=== PATIENT | male | born 1985 | race Caucasian/White ===

== ENCOUNTER 2016-11-06 20:58 | Emergency (ER) | payer OTHER, MEDICAID ==
[~2016-11-06] VITALS: Ht 172.7 cm; Wt 90.7 kg
[~2016-11-06 20:58] MED LIST: ALBUAER3 IN; BISA10EN RE; DIPH50TA9 PO; GAB400C PO; LEVO500I7 PO; LIS5T PO; ONDA4TAB8 SL; SIMV10TA84 PO; TRAM100C PO; TRAZ100T2 PO
[2016-11-06] MEDS ORDERED: LORazepam 0.5 MG TAB PO ONE (23:00)
[2016-11-06 23:24] LABS: Urine Bilirubin Negative (Negative); Urine Blood TRACE /uL (Negative); Urine Color Yellow (Yellow); Urine Glucose Normal (Normal); Urine Ketone Negative (Negative); Urine Nitrite Negative (Negative); Urine RBC 2 /hpf (0 - 3); Urine Urobilinogen Normal (Negative); Urine pH 6.5 (5.0-8.0)
[2016-11-06 23:27] LABS: Basophils # (auto) 0 uL; Basophils % (auto) 0.4 % (0.0-2.0); Eosinophils # (auto) 0.1 uL; Eosinophils % (auto) 0.8 % (0.0-7.0); Hematocrit 44.8 % (41.0-53.0); Hemoglobin 15.3 g/dL (13.5-17.5); Lymphocytes # (auto) 2.9 uL; Lymphocytes % (auto) 27.6 % (10.0-50.0); Mean Corpuscular Hemoglobin 30.9 pg (28.0-32.0); Mean Corpuscular Volume 90.6 fL (80.0-100.0); Mean Platelet Volume 7.9 fL (7.4-10.4); Monocytes # (auto) 0.7 uL; Monocytes % (auto) 6.2 % (0.0-12.0); Neutrophils # (auto) 6.9 uL; Platelet Count (auto) 281 10^3/uL (140-450); Red Cell Distribution Width 14.3 % (11.6-16.0); White Blood Cell 10.6 10^3/uL (4.4-10.8)
[2016-11-06 23:50] LABS: Albumin 3.8 g/dL (3.4-5.0); BUN/Creatinine Ratio 11.7; Potassium 3.8 mmol/L (3.5-5.1)
[2016-11-06 23:52] LABS: Acetaminophen < 2.0 ug/mL (10-30); Salicylate < 1.7 mg/dL (2.8-20.0)
[2016-11-06 23:53] LABS: Bilirubin, Total 0.4 mg/dL (0.2-1.0); Total Protein 7.5 g/dL (6.4-8.2)
[2016-11-07 01:16] VITALS: BP 133/90
== END 2016-11-07 01:41 | disposition home or self-care (01) ==
LOC: ER 21:07
DX: F41.9 Anxiety disorder, unspecified (principal); F32.9 Major depressive disorder, single episode, unspecified; J45.909 Unspecified asthma, uncomplicated; R41.82 Altered mental status, unspecified; G80.9 Cerebral palsy, unspecified; K21.9 Gastro-esophageal reflux disease without esophagitis; E78.5 Hyperlipidemia, unspecified; E07.9 Disorder of thyroid, unspecified
CPT/HCPCS: 36415; 80053; 80307; 80329; 81001; 84443; 85025

== ENCOUNTER 2018-06-12 18:44 | Emergency (ER) | payer OTHER, MEDICAID ==
[~2018-06-12] VITALS: Ht 152.4 cm; Wt 81.6 kg
[~2018-06-12 18:44] MED LIST changes: +ONDA-101 SL; -ONDA4TAB8 SL
[2018-06-12] MEDS ORDERED: ACTIVATED CHARCOAL 50 GM/240 ML SOL PO ONE (19:15)
[2018-06-12 19:50] LABS: Basophils # (auto) 0.1 uL; Basophils % (auto) 0.7 % (0.0-2.0); Eosinophils # (auto) 0.3 uL; Eosinophils % (auto) 2.7 % (0.0-7.0); Hematocrit 46.1 % (41.0-53.0); Hemoglobin 15.9 g/dL (13.5-17.5); Lymphocytes # (auto) 2.2 uL; Lymphocytes % (auto) 19.6 % (10.0-50.0); Mean Corpuscular Hemoglobin 29.8 pg (28.0-32.0); Mean Corpuscular Hgb Conc. 34.5 g/dL (32.0-36.0); Mean Corpuscular Volume 86.3 fL (80.0-100.0); Monocytes # (auto) 0.8 uL; Monocytes % (auto) 7.2 % (0.0-12.0); Neutrophils # (auto) 7.8 uL; Neutrophils % (auto) 69.8 % (37.0-80.0); Nucleated Red Blood Cells % 0.4 %; Platelet Count (auto) 212 10^3/uL (140-450); Red Blood Cells 5.35 10^6/uL (4.5-5.90); Red Cell Distribution Width 15.7 % (11.8-14.3); White Blood Cell 11.1 10^3/uL (4.4-10.8)
[2018-06-12 20:05] LABS: Alanine Aminotransferase 43 U/L (16-61); Albumin 4.3 g/dL (3.4-5.0); Anion Gap 12 (5-15); Aspartate Aminotransferase 28 U/L (15-37); BUN/Creatinine Ratio 18.5; Blood Alcohol < 3.0 mg/dL (0-5); Blood Urea Nitrogen 15 mg/dL (7-18); Carbon Dioxide 25 mmol/L (21-32); Chloride 102 mmol/L (98-107); GFR African American 141 mL/min; GFR Non-African American 117 mL/min; Glucose 115 mg/dL (74-106); Potassium 3.5 mmol/L (3.5-5.1); Salicylate < 1.7 mg/dL (2.8-20.0); Sodium 139 mmol/L (136-145)
[2018-06-12 20:06] LABS: Acetaminophen < 2.0 ug/mL (10-30)
[2018-06-12 20:09] LABS: Alkaline Phosphatase 84 U/L (45-117); Bilirubin, Total 0.8 mg/dL (0.2-1.0); Total Protein 7.5 g/dL (6.4-8.2)
[2018-06-12 21:06] LABS: Urine Bacteria NONE SEEN /hpf (None Seen); Urine Blood 1+ /uL (Negative); Urine Specific Gravity 1.009 (1.001-1.035); Urine WBC 1 /hpf (0 - 3)
[2018-06-12 21:12] LABS: Alcohol, Urine < 3.0 mg/dL (0-5); Amphetamine Screen, Urine NEGATIVE (NEGATIVE); Barbiturate Scree,Urine NEGATIVE (NEGATIVE); Benzodiazephine Screen, Urine NEGATIVE (NEGATIVE); Cannabinoid Screen, Urine NEGATIVE (NEGATIVE); Cocaine Screen, Urine NEGATIVE (NEGATIVE); Phencyclidine Screen, Urine NEGATIVE (NEGATIVE)
[2018-06-12 21:17] LABS: Opiate Scree,Urine NEGATIVE (NEGATIVE)
[2018-06-12] MEDS ORDERED: LORazepam 2MG/ML-1ML VIAL IM ONE (22:15)
[2018-06-12] MEDS ORDERED: diphenhdrAMINE HCL 50 MG/1 ML VL IM ONE (22:15)
[2018-06-12] MEDS ORDERED: HALOPERIDOL LACTATE 5 MG/ML INJ VIAL IM ONE (22:15)
[2018-06-12] MEDS ORDERED: LORazepam 2MG/ML-1ML VIAL ONE (22:16)
[2018-06-12] MEDS ORDERED: HALOPERIDOL LACTATE 5 MG/ML INJ VIAL ONE (22:16)
[2018-06-12] MEDS ORDERED: diphenhdrAMINE HCL 50 MG/1 ML VL ONE (22:16)
[2018-06-13 00:21] LABS: Basophils # (auto) 0.1 uL; Basophils % (auto) 1.4 % (0.0-2.0); Eosinophils # (auto) 0.3 uL; Hematocrit 44.1 % (41.0-53.0); Hemoglobin 14.9 g/dL (13.5-17.5); Lymphocytes # (auto) 2.6 uL; Lymphocytes % (auto) 23.9 % (10.0-50.0); Mean Corpuscular Hgb Conc. 33.7 g/dL (32.0-36.0); Mean Corpuscular Volume 86.2 fL (80.0-100.0); Monocytes # (auto) 0.8 uL; Monocytes % (auto) 7.6 % (0.0-12.0); Neutrophils # (auto) 6.9 uL; Neutrophils % (auto) 64.1 % (37.0-80.0); Platelet Count (auto) 200 10^3/uL (140-450); Red Blood Cells 5.12 10^6/uL (4.5-5.90); Red Cell Distribution Width 15.6 % (11.8-14.3); White Blood Cell 10.7 10^3/uL (4.4-10.8)
[2018-06-13 00:38] LABS: Albumin 4.1 g/dL (3.4-5.0); BUN/Creatinine Ratio 18.1; Calcium 8.8 mg/dL (8.5-10.1); Potassium 3.2 mmol/L (3.5-5.1)
[2018-06-13 00:41] LABS: Bilirubin, Total 0.6 mg/dL (0.2-1.0)
[2018-06-13 08:37] VITALS: BP 141/91
== END 2018-06-13 10:03 | disposition home or self-care (01) ==
LOC: ER 18:44 → EDBD 18:44 → ER 06-13 10:03
DX: T39.312A Poisoning by propionic acid derivatives, intentional self-harm, initial encounter (principal); R45.851 Suicidal ideations; F31.9 Bipolar disorder, unspecified; H54.7 Unspecified visual loss; F41.9 Anxiety disorder, unspecified; J45.909 Unspecified asthma, uncomplicated; E07.89 Other specified disorders of thyroid; Z88.0 Allergy status to penicillin; Y92.89 Other specified places as the place of occurrence of the external cause
CPT/HCPCS: 36415; 80053; 80307; 80320; 80329; 81001; 84484; 85025; 93005; 94761; 96372; 99284; J1200; J1630; J2060

== ENCOUNTER → 2019-11-08 | Emergency (ER) | payer OTHER, MEDICAID ==
[~2019-11-08] VITALS: Ht 172.7 cm; Wt 117.9 kg
[~2019-11-08] MED LIST changes: -TRAZ100T2 PO; +TRAZ100T3 PO
[2019-11-08 20:05] VITALS: BP 125/77
== END | disposition home or self-care (01) ==
LOC: ER 19:42
DX: F41.9 Anxiety disorder, unspecified (principal); F31.9 Bipolar disorder, unspecified; J45.909 Unspecified asthma, uncomplicated; K21.9 Gastro-esophageal reflux disease without esophagitis; E78.5 Hyperlipidemia, unspecified; E07.9 Disorder of thyroid, unspecified; Z88.0 Allergy status to penicillin

== ENCOUNTER 2024-04-13 14:59 | Inpatient (IN) | payer OTHER, MEDICAID ==
[~2024-04-13] VITALS: Ht 175.3 cm; Wt 107.0 kg
[~2024-04-13 14:59] MED LIST changes: +SIMV10TA20 PO; -SIMV10TA84 PO; +TRAZ-228 PO; -TRAZ100T3 PO
--- NOTE | 2024-04-13 15:08 | ED.PDOC ---
Psychiatric HPI Comments A 38 year old male presents to the ED with a chief complaint of suicidal ideation onset today. Patient states he ran out of his medication, did not state which medications but has a list with him. Patient is also experiencing auditory hallucinations as well as suicidal ideations. Patient has been experiencing nausea and vomiting for the past 3 days and has not been able to keep down his medication. Patient has a past medical history of HLD, HTN, anxiety, asthma, depression, Schizophrenia and GERD,hypothyroidism, cerebral palsy, retinopathy, urinary and fecal incontinence, legally blind, OCD, idiopathic scoliosis, gastroparesis. No other symptoms or modifying factors present at this time. Time Seen by MD: 15:02 Primary Care Provider: DANIIK Reviewed Notes: Medications, Allergies Information Source: Patient Mode of Arrival: Wheelchair Timing: Hours Duration: Since onset Presents with: Suicidal Ideation Past Medical History PAST MEDICAL HISTORY: Anxiety, Asthma, Depression, GERD, High Lipids, Schizophrenia, Thyroid Surgical History: Hernia Repair Family History Family History: No family hx of DM, No family hx of HTN Social History Smoker: Non-Smoker Alcohol: Denies ETOH Use Drugs: Denies Drug Use Lives In: Home Constitutional: denies: chills, diaphoresis, fatigue, fever, malaise, sweats, weakness, others EENTM: denies: blurred vision, double vision, ear bleeding, ear discharge, ear drainage, ear pain, ear ringing, eye pain, eye redness, hearing loss, mouth pain, mouth swelling, nasal discharge, nose bleeding, nose congestion, nose pain , photophobia, tearing, throat pain, throat swelling, voice changes, others Respiratory: denies: cough, hemoptysis, orthopnea, SOB at rest, shortness of breath, SOB with excertion, stridor, wheezing, others Cardiovascular: denies: chest pain, dizzy spells, diaphoresis, Dyspnea on exertion, edema, irregular heart beat, left arm pain, lightheadedness, palpitations, PND, syncope, others Gastrointestinal: denies: abdomen distended, abdominal pain, blood streaked bowels, constipated, diarrhea, dysphagia, difficulty swallowing, hematemesis, melena, nausea, poor appetite, poor fluid intake, rectal bleeding, rectal pain, vomiting, others Genitourinary: denies: burning, dysuria, flank pain, frequency, hematuria, incontinence, penile discharge, penile sore, pain, testicle pain, testicle swelling, urgency, others Neurological: denies: dizziness, fainting, headache, left sided numbness, left sided weakness, numbness, paresthesia, pre-existing deficit, right sided numbness, right sided weakness, seizure, speech problems, tingling, tremors, weakness, others Musculoskeletal: denies: back pain, gout, joint pain, joint swelling, muscle pain, muscle stiffness, neck pain, others Integumetry: denies: bruises, change in color, change in hair/nails, dryness, laceration, lesions, lumps, rash, wounds, others Allergic/Immunocompromised: denies: Difficulty Healing, Frequent Infections, Hives, Itching, others Hematologic/Lymphatic: denies: anemia, blood clots, easy bleeding, easy bruising, swollen glands, others Endocrine: denies: excessive hunger, excessive sweating, excessive thirst, excessive urination, flushing, intolerance to cold, intolerance to heat, unexplained weight gain, unexplained weight loss, others Psychiatric: reports: suicidal, others (hallucinations ); denies: anxiety, bipolar disorder, depression, hopeless, panic disorder, schizophrenia, sleepless All Other Systems: Reviewed and Negative Physical Exam General Appearance: Moderate Distress, Normal HEENT: Normal ENT Inspection, Pharynx Normal, TMs Normal Neck: Full Range of Motion, Non-Tender, Normal, Normal Inspection Respiratory: Chest Non-Tender, Lungs Clear, No Accessory Muscle Use, No Respiratory Distress, Normal Breath Sounds Cardiovascular: No Edema, No JVD, No Murmur, No Gallop, Normal Peripheral Pulses, Regular Rate/Rhythm Breast Exam: Deferred Gastrointestinal: No Organomegaly, Non Tender, No Pulsatile Mass, Normal Bowel Sounds, Soft Genitalia: Deferred Pelvic: Deferred Rectal: Deferred Extremities: No calf tenderness, Normal capillary refill, Non-tender, No pedal edema Musculoskeletal : Apperance: Normal Neurologic: Alert Cerebellar Function: NOT DONE Reflexes: NOT DONE Skin: Dry, Normal Color, Warm Peripheral Pulses: 3+ Radial (R), 3+ Radial (L) Lymphatic: No Adenopathy Was a procedure done? Was a procedure done?: No Psych Differential Dx Psych. Differential Dx: Schizoprenia, Suicidal X-Ray, Labs, Meds, VS Patient alert. History of cerebral palsy. States that he has been having suicidal ideation. Having nausea vomiting. Vitals stable. Answering all questions. Frustrated that he can not take his medication. Establish intravenous access. Was given Zofran. He will be admitted for medical condition after which time he will need psychiatric evaluation. Time of 1ST Reevaluation: 15:33 Reevaluation 1ST: Unchanged Patient Education/Counseling: Diagnosis, Treatment, Prognosis Family Education/Counseling: No Family Present Departure 1 Departure Time of Disposition: 15:34 Impression: Primary Impression: Gastroenteritis Additional Impression: Suicidal ideation Disposition: ADMITTED INPATIENT Admit to: Med Surg Condition: Guarded Critical Care Note Critical Care Time?: Yes (45 min-critical care time only) Stability Stability form required: No Heart Score Heart Score: Heart Score Response (Comments) Value History N/A 0 EKG N/A 0 Age N/A 0 Risk Factors N/A 0 Troponin N/A 0 Total 0 I personally scribed for ORALIA ASHRAF MD ([email or web address]) on 04/13/24 at 15:08. Electronically submitted by Calista Chance ([email or web address]). I personally scribed for ORALIA ASHRAF MD ([email or web address]) on 04/13/24 at 15:15. Electronically submitted by Calista Chance ([email or web address]). I personally scribed for ORALIA ASHRAF MD ([email or web address]) on 04/13/24 at 15:19. Electronically submitted by Calista Chance ([email or web address]). I personally scribed for ORALIA ASHRAF MD ([email or web address]) on 04/13/24 at 15:28. Electronically submitted by Calista Chance ([email or web address]). ORALIA ASHRAF MD Apr 13, 2024 15:08
[2024-04-13 16:00] LABS: Basophils # (auto) 0.1 10 ^3/uL (0-0.2); Basophils % (auto) 0.9 % (0.0-2.0); Eosinophils # (auto) 0.3 10 ^3/uL (0-0.8); Eosinophils % (auto) 3.1 % (0.0-7.0); Hematocrit 44.2 % (41.0-53.0); Hemoglobin 14.7 g/dL (13.5-17.5); Lymphocytes # (auto) 2.3 10 ^3/uL (0.4-5.4); Lymphocytes % (auto) 22.4 % (10.0-50.0); Mean Corpuscular Hemoglobin 27.7 pg (28.0-32.0); Mean Corpuscular Hgb Conc. 33.2 g/dL (32.0-36.0); Mean Corpuscular Volume 83.3 fL (80.0-100.0); Monocytes # (auto) 0.8 10 ^3/uL (0-1.3); Monocytes % (auto) 7.9 % (0.0-12.0); Neutrophils # (auto) 6.8 10 ^3/uL (1.6-8.6); Neutrophils % (auto) 65.7 % (37.0-80.0); Nucleated Red Blood Cells % 0.1 %; Platelet Count (auto) 287 10^3/uL (140-450); Red Cell Distribution Width 16.1 % (11.8-14.3); White Blood Cell 10.3 10^3/uL (4.4-10.8)
[2024-04-13 16:08] LABS: Chloride 105 mmol/L (98-107); Sodium 138 mmol/L (136-145)
[2024-04-13 16:09] LABS: Anion Gap 6 (5-15); Calcium 10.2 mg/dL (8.7-10.4); Carbon Dioxide 27 mmol/L (20-31)
[2024-04-13 16:14] LABS: BUN/Creatinine Ratio 16.5 (10.0-20.0); Blood Urea Nitrogen 17 mg/dL (9-23); Glucose 121 mg/dL (74-106)
[2024-04-13 16:40] VITALS: PULSE 96; RESP 16; O2SAT 97
[2024-04-13] MEDS: ONDANSETRON HCL 4 MG/2 ML VIAL IV ONE (17:52)
[2024-04-13 19:45] VITALS: PULSE 86; RESP 14; O2SAT 98
[2024-04-13] MEDS ORDERED: ACETAMINOPHEN 325 MG TAB PO PRN (22:30)
[2024-04-13] MEDS ORDERED: NITROGLYCERIN 0.4 MG SL TAB SL PRN (22:30)
[2024-04-13] MEDS ORDERED: MORPHINE SULFATE INJ 2 MG/ml SYRG IV PRN (22:30)
[2024-04-13] MEDS: SODIUM CHLORIDE 0.9% 1,000 ML IV SCH (22:30)
[2024-04-13] MEDS: HYDROcodone-ACET 5/325MG TAB PO PRN (22:45)
--- NOTE | 2024-04-13 22:52 | DVHHPRES ---
History of Present Illness Resident Creating Document: CARLOS DELCID RESIDENT History of Present Illness This is a 38 year old wheelchair bound male with past medical history of HLD, HTN, anxiety, asthma, depression, Schizophrenia and GERD,hypothyroidism, cerebral palsy, retinopathy, urinary and fecal incontinence, legally blind, OCD, idiopathic scoliosis, gastroparesispresents presented to the ED with a chief complaint of suicidal ideation onset today. Patient states he ran out of his medication, did not state which medications but has a list with him. Patient is also experiencing auditory hallucinations as well as suicidal ideations. Patient has been experiencing nausea and vomiting for the past 3 days and has not been able to keep down his medication. He reports having vomited 4 to 5 times and experiencing watery diarrhea, 3 episodes in 24 hour. He denies any abdominal pain, blood in the stool, chest pain, cough, or shortness of breath. Past Medical History HLD, HTN, anxiety, asthma, depression, Schizophrenia and GERD,hypothyroidism, cerebral palsy, retinopathy, urinary and fecal incontinence, legally blind, OCD, idiopathic scoliosis, gastroparesis Past Surgical History: None Past Surgical History Family History: None Smoke: No ALCOHOL: none Review of Systems Constitutional: No: Fever, Chills, Sweats, Weakness, Malaise, Other Eyes: No: Pain, Vision change, Conjunctivae inflammation, Eyelid inflammation, Other, Redness ENT: No: Ear pain, Ear discharge, Nose pain, Nose discharge, Nose congestion, Mouth pain, Mouth swelling, Throat pain, Throat swelling, Other Respiratory: No: Cough, Dry, Shortness of breath, SOB with excertion, Wheezing, Hemoptysis, Pleuritic Pain, Sputum, Wheezing, Other Cardiovascular: No: Chest Pain, Palpitations, Orthopnea, Paroxysmal Noc. Dyspnea, Edema, Lt Headedness, Other Gastrointestinal: Nausea, Vomiting, Abdominal Pain, Diarrhea Genitourinary: No Dysuria, No Frequency, No Incontinence, No Hematuria, No Retention, No Other Musculoskeletal: No: other, neck pain, shoulder pain, arm pain, back pain, hand pain, leg pain, foot pain Skin: No: Rash, Lesions, Jaundice, Bruising, Other Neurological: No: Weakness, Numbness, Incoordination, Change in speech, Confusion, Seizures, Other Allergies: Coded Allergies: Penicillins (Verified Allergy, Unknown, 04/09/14) Medications Current Medications Medications Dose Ordered Sig/Demian Route Start Time Stop Time Status Last Admin Dose Admin Sodium Chloride 1,000 ml @ 75 mls/hr [id number] IV 04/13/24 22:30 Acetaminophen 325 mg Q4HP PRN PO 04/13/24 22:30 Acetaminophen/ Hydrocodone Bitart 1 tab Q4HP PRN PO 04/13/24 22:30 04/13/24 22:45 1 TAB Ondansetron HCl 4 mg Q4HP PRN IV 04/13/24 22:30 Enoxaparin Sodium 40 mg DAILY SC 04/14/24 10:00 UNV Nitroglycerin 0.4 mg Q5MINP PRN SL 04/13/24 22:30 Morphine Sulfate 2 mg Q30M PRN IV 04/13/24 22:30 Exam Vital Signs Vital Signs Date Time Temp Pulse Resp B/P (MAP) Pulse Ox O2 Delivery O2 Flow Rate FiO2 04/13/24 19:47 98.8 96 16 146/82 (103) 98 98.8 04/13/24 16:40 Room Air* 0 21 General Appearance: Alert, Oriented X3, Cooperative, No acute distress HEENT: Atraumatic, PERRLA, EOMI, Mucous membr. moist/pink Respiratory: Clear to auscultation, Normal air movement Cardiovascular: Regular rate, Normal S1, Normal S2, No murmurs Abdominal: Normal bowel sounds, Soft, No tenderness, No hepatospenomegaly, No masses Extremities: No clubbing, No cyanosis, No edema, Normal pulses, No tenderness/swelling Skin: No rashes, No breakdown, No significant lesion Neuro: Other (Wheelchair-bound, the patient was not talking and communicating only with text messages) Psych/Mental Status: Other (Depressed, suicidal thoughts) Labs/Xrays Labs Test 04/13/24 22:37 04/13/24 15:49 Range/Units White Blood Count 10.3 4.4-10.8 10^3/uL Red Blood Count 5.30 4.5-5.90 10^6/uL Hemoglobin 14.7 13.5-17.5 g/dL Hematocrit 44.2 41.0-53.0 % Mean Corpuscular Volume 83.3 80.0-100.0 fL Mean Corpuscular Hemoglobin 27.7 L 28.0-32.0 pg Mean Corpuscular Hemoglobin Concent 33.2 32.0-36.0 g/dL Red Cell Distribution Width 16.1 H 11.8-14.3 % Platelet Count 287 140-450 10^3/uL Mean Platelet Volume 7.6 6.9-10.8 fL Neutrophils (%) (Auto) 65.7 37.0-80.0 % Lymphocytes (%) (Auto) 22.4 10.0-50.0 % Monocytes (%) (Auto) 7.9 0.0-12.0 % Eosinophils (%) (Auto) 3.1 0.0-7.0 % Basophils (%) (Auto) 0.9 0.0-2.0 % Neutrophils # (Auto) 6.8 1.6-8.6 10 ^3/uL Lymphocytes # (Auto) 2.3 0.4-5.4 10 ^3/uL Monocytes # (Auto) 0.8 0-1.3 10 ^3/uL Eosinophils # (Auto) 0.3 0-0.8 10 ^3/uL Basophils # (Auto) 0.1 0-0.2 10 ^3/uL Nucleated Red Blood Cells 0.1 % Sodium Level 138 136-145 mmol/L Potassium Level 4.0 3.5-5.1 mmol/L Chloride Level 105 98-107 mmol/L Carbon Dioxide Level 27 20-31 mmol/L Anion Gap 6 5-15 Blood Urea Nitrogen 17 9-23 mg/dL Creatinine 1.03 0.700-1.30 mg/dL Glomerular Filtration Rate Calc 95 >90 mL/min BUN/Creatinine Ratio 16.5 10.0-20.0 Serum Glucose 121 H 74-106 mg/dL Calcium Level 10.2 8.7-10.4 mg/dL Assessment/Plan Assessment/Plan Assessment and plan: # Acute gastroenteritis - IV normal saline at 75 mL/hour - IV Zofran 4 mg q.4 p.r.n. # Suicidal ideation - Telepsych consult # Chronic hypothyroidism - Levothyroxine 50 mcg q.6 a.m. # GERD - Protonix 40 mg daily # Chronic neuropathic pain - Gabapentin 300 mg p.o. t.i.d. # DVT prophylaxis - Lovenox 40 mg sc daily Plan of treatment discussed with Dr. Joseph Plan discussed with: Patient, Other My Orders Orders - CARLOS DELCID RESIDENT Procedure Category Date Status Time Admit ADMIT 04/13/24 Transmitted 22:17 Allergies MAHENDRA 04/13/24 In Process 22:17 Code Status CODE 04/13/24 Transmitted 22:17 Sodium Chloride 0.9% PHA 04/13/24 In Process 22:30 Acetaminophen Tablet PHA 04/13/24 In Process (Tylenol Tablet) 22:30 Hydrocodone-Acet PHA 04/13/24 In Process 5/325mg Tab ([place] 22:30 Ondansetron Hcl PHA 04/13/24 In Process (Zofran) 22:30 Enoxaparin Sodium PHA 04/14/24 Pending (Lovenox) 10:00 Complete Blood Count LAB 04/14/24 Verified 04:00 Comprehensive LAB 04/14/24 Verified Metabolic Panel 04:00 Clear Liq Diet DIET 04/14/24 Transmitted Breakfast Nitroglycerin PHA 04/13/24 In Process Sublingual (Ntrostat 22:30 Morphine Sulfate PHA 04/13/24 In Process Injection 22:30 Oxygen By Nasal RT 04/13/24 Transmitted Cannula 22:17 Stat Ekg For Chest MAHENDRA 04/13/24 In Process Pain 22:17 Notify Md Of Changes MAHENDRA 04/13/24 In Process From Base 22:17 Director Of Research For MAHENDRA 04/13/24 In Process 24 Hours 22:17 Emergency Dysrhythmia MAHENDRA 04/13/24 In Process Protocol 22:17 Rhythm Strips Once MAHENDRA 04/13/24 In Process Every Shift 22:17 Date of Service: Apr 13, 2024 Billing Provider: LESLI JOSEPH MD Common Visit Codes: [id number] INP/OBS CARE (HIGH) CARLOS DELCID RESIDENT Apr 13, 2024 22:52 LESLI JOSEPH MD Apr 16, 2024 08:23
[2024-04-13 23:13] LABS: Amphetamine Screen, Urine Neg (NEGATIVE); Barbiturate Scree,Urine Neg (NEGATIVE); Benzodiazephine Screen, Urine Neg (NEGATIVE); Cocaine Screen, Urine Neg (NEGATIVE); Opiate Scree,Urine Neg (NEGATIVE)
[2024-04-13 23:14] LABS: Cannabinoid Screen, Urine Neg (NEGATIVE); Phencyclidine Screen, Urine Neg (NEGATIVE)
[2024-04-14] VITALS (12 sets, daily range): BP systolic 112–149; BP diastolic 59–93; PULSE 71–88; RESP 16–20; TEMP 97.8–98.4; O2SAT 90–98
[2024-04-14] MEDS: ONDANSETRON HCL 4 MG/2 ML VIAL IV PRN (03:06)
[2024-04-14] MEDS: GABAPENTIN 300 MG CAP PO SCH (05:56)
[2024-04-14] MEDS: LEVOTHYROXINE SODIUM 50 MCG TAB PO SCH (05:56)
[2024-04-14] MEDS: PANTOPRAZOLE 40 MG TAB PO SCH (05:56)
[2024-04-14] MEDS ORDERED: CEPH500C PO (07:01)
[2024-04-14] MEDS ORDERED: PANT40TA2 PO (07:01)
[2024-04-14] MEDS ORDERED: FENO160T PO (07:22)
[2024-04-14] MEDS ORDERED: MIRT1TAB38 PO (07:22)
[2024-04-14] MEDS ORDERED: OXCA600T3 PO (07:22)
[2024-04-14] MEDS ORDERED: FLUP5TAB14 PO (07:22)
[2024-04-14] MEDS ORDERED: LEV75T PO (07:22)
[2024-04-14] MEDS ORDERED: ATOR-507 PO (07:22)
[2024-04-14] MEDS ORDERED: EMPA1TAB PO (07:22)
[2024-04-14] MEDS ORDERED: NIFE1TAB30 PO (07:22)
[2024-04-14] MEDS ORDERED: VENL150C3 PO (07:22)
[2024-04-14] MEDS ORDERED: MELO15TA29 PO (07:22)
[2024-04-14] MEDS ORDERED: OLAN1TAB PO (07:22)
[2024-04-14] MEDS ORDERED: BACL20TA PO (07:22)
[2024-04-14] MEDS ORDERED: OLAN20TA PO (07:22)
[2024-04-14] MEDS ORDERED: METO-281 PO (07:22)
[2024-04-14] MEDS ORDERED: LOSA100T14 PO (07:22)
[2024-04-14] MEDS ORDERED: CHOL20007 PO (07:22)
[2024-04-14] MEDS ORDERED: SODI1ENE4 PR (07:22)
[2024-04-14] MEDS: ENOXAPARIN SOD 40 MG/0.4 ML SYRINGE SC SCH (10:00)
[2024-04-14 10:12] LABS: Alanine Aminotransferase 25 U/L (7-40); Alkaline Phosphatase 65 U/L (46-116); Anion Gap 8 (5-15); Calcium 10.1 mg/dL (8.7-10.4); Carbon Dioxide 28 mmol/L (20-31); Chloride 102 mmol/L (98-107); Glucose 120 mg/dL (74-106); Potassium 4.2 mmol/L (3.5-5.1); Sodium 138 mmol/L (136-145)
[2024-04-14 10:13] LABS: BUN/Creatinine Ratio 13.2 (10.0-20.0); Blood Urea Nitrogen 14 mg/dL (9-23)
[2024-04-14 10:14] LABS: Albumin 4.8 g/dL (3.2-4.8)
[2024-04-14 10:15] LABS: Aspartate Aminotransferase 11 U/L (13-40); Bilirubin, Total 0.4 mg/dL (0.2-1.0); Total Protein 7.4 g/dL (5.7-8.2)
[2024-04-14 10:17] LABS: Basophils # (auto) 0.1 10 ^3/uL (0-0.2); Basophils % (auto) 0.7 % (0.0-2.0); Eosinophils # (auto) 0.2 10 ^3/uL (0-0.8); Eosinophils % (auto) 2.1 % (0.0-7.0); Hematocrit 43.6 % (41.0-53.0); Hemoglobin 14.2 g/dL (13.5-17.5); Lymphocytes # (auto) 1.9 10 ^3/uL (0.4-5.4); Lymphocytes % (auto) 18.1 % (10.0-50.0); Mean Corpuscular Hemoglobin 27.3 pg (28.0-32.0); Mean Corpuscular Hgb Conc. 32.6 g/dL (32.0-36.0); Mean Corpuscular Volume 83.7 fL (80.0-100.0); Monocytes # (auto) 0.7 10 ^3/uL (0-1.3); Monocytes % (auto) 6.9 % (0.0-12.0); Neutrophils # (auto) 7.8 10 ^3/uL (1.6-8.6); Neutrophils % (auto) 72.2 % (37.0-80.0); Platelet Count (auto) 267 10^3/uL (140-450); Red Cell Distribution Width 16.1 % (11.8-14.3); White Blood Cell 10.8 10^3/uL (4.4-10.8)
[2024-04-14] MEDS: LISINOPRIL 5 MG TAB PO SCH (10:42)
[2024-04-14] MEDS: ACETAMINOPHEN 500 MG TAB PO SCH (10:49)
[2024-04-14] MEDS ORDERED: IPRATROPIUM BROM 0.5 MG/2.5ML INH SOL NEB SCH (11:00)
[2024-04-14 11:20] LABS: Urine Bacteria None Seen /hpf (None Seen); Urine WBC None Seen /hpf (0 - 3)
[2024-04-14 11:39] LABS: Urine Blood Negative /uL (Negative); Urine Clarity Clear (Clear); Urine Color Light-Yellow (Yellow); Urine Protein, UAD Negative (Negative); Urine Specific Gravity 1.019 (1.001-1.035); Urine Urobilinogen Normal (Negative)
[2024-04-14] MEDS ORDERED: LEVALBUTEROL HCL 1.25 MG/3 ML NEB NEB SCH (12:00)
[2024-04-14] MEDS ORDERED: SUMA50TA16 PO (14:08)
[2024-04-14] MEDS ORDERED: BUTA-280 OR (14:08)
[2024-04-14 14:18] LABS: COVID19 ANTIGEN SOFIA FIA NEGATIVE (NEGATIVE)
--- NOTE | 2024-04-14 15:08 | DVHINCON2 ---
Date of service: Apr 14, [address] Linden Ybarra Reason for Consultation Medication management and disposition. History of Present Illness Chief complaint: "I have migraine, urinary tract infection and voices". History of present illness: This is a 38-year-old male who was seen for evaluation via telepsychiatry. Patient reported that he has been feeling more depressed for last four days. Patient reported having trouble sleeping, loss of interest, energy low, has trouble content, appetite decreased and he feels hope less and worthless. He denied any suicidal or homicidal ideation. He reported having command auditory hallucination telling him to "they tell me to hit myself and bite myself". He denied any visual hallucination. He denied any paranoia. Past psychiatric history: Patient reported around 39 inpatient psychiatric hospitalization. He reported that he has been diagnosed schizoaffective disorder and anxiety. He reported he had suicidal ideation but no attempts in the past. Past Medical History As per history and physical. Past Surgical History As per history and physical. Family History: Cancer G8 MOTHER Family history: Arthritis G8 MOTHER Family history: Diabetes mellitus G8 MOTHER G8 FATHER Family history: Hypertension G8 MOTHER G8 FATHER No Family History of: Alcoholism Cancer of colon Chronic obstructive lung disease (situation) Family history: Alzheimer's disease Family history: Asthma Family history: Autoimmune disease (situation) Family history: Blood disorder Family history: Cardiovascular disease Family history: Congenital anomaly Family history: Coronary thrombosis Family history: Depression (situation) Family history: Diabetes in Family history: Glaucoma Family history: Hypercholesterolemia (situation) Family history: Osteoporosis Family history: Suicide (situation) Family history: Thyroid disorder Malignant melanoma Malignant neoplasm of breast Malignant neoplasm of lung Malignant neoplasm of ovary Prostate cancer Renal stone Seizure disorder (situation) Stroke Family History He reported that both of his parents have mental health issues. Social History Patient is and has no children. Patient reported that he is on SSDI. Substance use: Denied Allergies: Coded Allergies: Penicillins (Verified Allergy, Unknown, 04/09/14) Home Meds Reported Medications Btumhrqpfg-Xgfxjykslwtln-Ubclj (FIORICET) Cap, 1 OR, CAP 04/14/24 Sumatriptan Succinate (Sumatriptan Succinate) 50 Mg Tab, 50 MG PO, MG 04/14/24 Sodium Phosphates (Enema) 1 Ronna Ronna, 1 RONNA [place], EA 04/14/24 Baclofen (Baclofen) 20 Mg Tab, 1 TAB PO TID, #90 TAB 2 Refills 04/14/24 Metoclopramide Hcl (Reglan) 10 Mg Tab, 10 MG PO, TAB 04/14/24 Meloxicam (Meloxicam) 15 Mg Tab, 1 TAB PO DAILY, #30 TAB 2 Refills 04/14/24 Fluphenazine Hcl (Fluphenazine Hcl) 5 Mg Tab, 1 TAB PO QPM, #30 TAB 1 Refill 04/14/24 Oxcarbazepine (Trileptal) 600 Mg Tab, 1 TAB PO BID, #60 TAB 1 Refill 04/14/24 Empagliflozin (Jardiance) 10 Mg Tab, 10 MG PO, TAB 04/14/24 Mirtazapine (Mirtazapine Oral Disintegrating Tablet) 15 Mg Tab, 1 TAB PO QPM, #30 TAB 3 Refills 04/14/24 Venlafaxine Hydrochloride (Effexor Xr) 150 Mg Cap, 1 CAP PO DAILY, #30 CAP 1 Refill 04/14/24 Atorvastatin Calcium (Lipitor) 40 Mg Tab, 1 TAB PO QPM, #90 TAB 1 Refill 04/14/24 Olanzapine-Samidorphan l-Malat (Lybalvi 15-10 mg) 1 Tab Tab, 1 TAB PO, TAB 04/14/24 Olanzapine (Zyprexa) 20 Mg Tab, 1 TAB PO QPM, #30 TAB 04/14/24 Fenofibrate (Fenofibrate) 160 Mg Tab, 1 TAB PO DAILY, #30 TAB 5 Refills 04/14/24 Levothyroxine Sodium (Synthroid) 75 Mcg Tab, 1 TAB PO DAILY, #30 TAB 5 Refills 04/14/24 Nifedipine (Nifedipine Er) 60 Mg Tab, 1 TAB PO DAILY, #30 TAB 5 Refills 04/14/24 Pantoprazole Sodium Sesquihydr (Protonix) 40 Mg Tab, 40 MG PO DAILY, #30 TAB 04/14/24 Cephalexin Monohydrate (Cephalexin) 500 Mg Cap, 1 CAP PO QID, #40 CAP 04/14/24 Discontinued Reported Medications Levothyroxine Sodium (LEVOTHYROXINE SODIUM) 500 Mcg Inj, 50 MCG PO DAILY, INJ 04/08/14 Current Medications Current Medications Medications (Trade) Dose Ordered Sig/Demian Route PRN Reason Start Time Stop Time Status Last Admin Sodium Chloride 1,000 ml @ 75 mls/hr [id number] IV 04/13/24 22:30 04/14/24 03:11 Acetaminophen (Tylenol Tablet) 325 mg Q4HP PRN PO MILD PAIN (1-3 PAIN SCALE) 04/13/24 22:30 Acetaminophen/ Hydrocodone Bitart ([place] 5/325MG Tab) 1 tab Q4HP PRN PO MODERATE PAIN (4-6 PAIN SCALE) 04/13/24 22:30 04/14/24 02:59 Ondansetron HCl (Zofran) 4 mg Q4HP PRN IV NAUSEA / VOMITING 04/13/24 22:30 04/14/24 10:58 Enoxaparin Sodium (Lovenox) 40 mg DAILY SC 04/14/24 10:00 04/14/24 10:50 Nitroglycerin (Ntrostat Sublingual) 0.4 mg Q5MINP PRN SL FOR CHEST PAIN 04/13/24 22:30 Morphine Sulfate 2 mg Q30M PRN IV FOR CHEST PAIN 04/13/24 22:30 Levothyroxine Sodium (Synthroid Tablet) 50 mcg QAM@0600 PO 04/14/24 06:00 04/14/24 05:56 Gabapentin (Neurontin Capsule) 300 mg TID PO 04/14/24 06:00 04/14/24 05:56 Pantoprazole Sodium (Protonix Tablet) 40 mg DAILY@0600 PO 04/14/24 06:00 04/14/24 05:56 Lisinopril (Zestril Tablet) 5 mg DAILY PO 04/14/24 10:00 04/14/24 10:42 Acetaminophen (Tylenol Tablet) 500 mg Q6HR PO 04/14/24 12:00 04/14/24 10:49 Levalbuterol HCl (Xopenex Medneb) 0.625 mg Q6HR NEB 04/14/24 12:00 04/14/24 10:37 DC Ipratropium [place] (Atrovent Medneb) 0.5 mg Q4HWA NEB 04/14/24 11:00 04/14/24 10:37 DC Ipratropium [place] (Atrovent Medneb) 0.5 mg Q6HPRN PRN NEB SHORTNESS OF BREATH 04/14/24 10:45 Levalbuterol HCl (Xopenex Medneb) 0.625 mg Q6HPRN PRN NEB SHORTNESS OF BREATH 04/14/24 10:45 Review of Systems Patient has been complaining of nausea and vomiting. Rest of his review of systems is negative except HPI. Vital Signs Vital Signs Date Time Temp Pulse Resp B/P (MAP) Pulse Ox O2 Delivery O2 Flow Rate FiO2 04/14/24 14:02 98.3 76 18 136/88 (104) 93 98.3 04/14/24 10:38 0.0 21 04/14/24 10:38 Room Air* Physical Exam Mental status examination: This is a 38 year male who appears slightly older than his stated age. His grooming is marginal. His eye contact is good. His speech is regular rate and rhythm. He describes mood as "up and down" and his affect is restricted. He denied any suicidal or homicidal ideation. He reported having command auditory hallucination. He denied any visual hallucination. His thought process is linear. He is oriented to place, person, year and month. His attention and concentration slightly impaired. His memory and language is intact. His judgment and insight is limited. His impulse control is limited. His fund of knowledge is intact. Labs/Diagnostic Data Labs Test 04/14/24 13:40 04/14/24 11:10 04/14/24 10:37 04/14/24 09:14 Range/Units SARS-CoV-2 Antigen (Rapid) Negative NEGATIVE Urine Color Light-yellow Yellow Urine Clarity Clear Clear Urine pH 7.0 5.0-9.0 Urine Specific [place] 1.019 1.001-1.035 Urine Protein Negative Negative Urine Ketones Negative Negative Urine Blood Negative Negative /uL Urine Nitrite Negative Negative Urine Bilirubin Negative Negative Urine Urobilinogen Normal Negative mg/dL Urine Leukocyte Esterase Negative Negative /uL Urine RBC 1 0 - 3 /hpf Urine WBC None seen 0 - 3 /hpf Urine Squamous Epithelial Cells None seen <5 /hpf Urine Bacteria None seen None Seen /hpf Urine Glucose 4+ H Normal mg/dL White Blood Count 10.8 4.4-10.8 10^3/uL Red Blood Count 5.20 4.5-5.90 10^6/uL Hemoglobin 14.2 13.5-17.5 g/dL Hematocrit 43.6 41.0-53.0 % Mean Corpuscular Volume 83.7 80.0-100.0 fL Mean Corpuscular Hemoglobin 27.3 L 28.0-32.0 pg Mean Corpuscular Hemoglobin Concent 32.6 32.0-36.0 g/dL Red Cell Distribution Width 16.1 H 11.8-14.3 % Platelet Count 267 140-450 10^3/uL Mean Platelet Volume 7.7 6.9-10.8 fL Neutrophils (%) (Auto) 72.2 37.0-80.0 % Lymphocytes (%) (Auto) 18.1 10.0-50.0 % Monocytes (%) (Auto) 6.9 0.0-12.0 % Eosinophils (%) (Auto) 2.1 0.0-7.0 % Basophils (%) (Auto) 0.7 0.0-2.0 % Neutrophils # (Auto) 7.8 1.6-8.6 10 ^3/uL Lymphocytes # (Auto) 1.9 0.4-5.4 10 ^3/uL Monocytes # (Auto) 0.7 0-1.3 10 ^3/uL Eosinophils # (Auto) 0.2 0-0.8 10 ^3/uL Basophils # (Auto) 0.1 0-0.2 10 ^3/uL Nucleated Red Blood Cells 0.0 % Sodium Level 138 136-145 mmol/L Potassium Level 4.2 3.5-5.1 mmol/L Chloride Level 102 98-107 mmol/L Carbon Dioxide Level 28 20-31 mmol/L Anion Gap 8 5-15 Blood Urea Nitrogen 14 9-23 mg/dL Creatinine 1.06 0.700-1.30 mg/dL Glomerular Filtration Rate Calc 92 >90 mL/min BUN/Creatinine Ratio 13.2 10.0-20.0 Serum Glucose 120 H 74-106 mg/dL Hemoglobin A1c 7.0 H <5.7 % A1C Calcium Level 10.1 8.7-10.4 mg/dL Total Bilirubin 0.4 0.2-1.0 mg/dL Aspartate Amino Transferase (AST) 11 L 13-40 U/L Alanine Aminotransferase (ALT) 25 7-40 U/L Alkaline Phosphatase 65 46-116 U/L Total Protein 7.4 5.7-8.2 g/dL Albumin 4.8 3.2-4.8 g/dL Thyroid Stimulating Hormone (TSH) 1.29 0.55-4.78 uIU/mL Test 04/13/24 22:37 Range/Units Urine Opiates Screen Neg NEGATIVE Urine Fentanyl Screen Neg NEGATIVE Urine Barbiturates Screen Neg NEGATIVE Urine Phencyclidine Screen Neg NEGATIVE Urine Amphetamines Screen Neg NEGATIVE Urine Benzodiazepines Screen Neg NEGATIVE Urine Cocaine Screen Neg NEGATIVE Urine Cannabinoids Screen Neg NEGATIVE Assessment Patient with a diagnosis of schizoaffective disorder depressed type who reported having command auditory hallucination and attempts have thoughts of hitting himself and biting himself. Plan/Recommendation I will recommend 5150 hold for danger to self and grave disability. I will start him on Remeron 15 mg p.o. q.h.s. and Zyprexa 5 mg p.o. t.i.d.. Care was coordinated with the patient and his RN. Plan discussed with: Patient NILESH MULLEN MD Apr 14, 2024 15:08
[2024-04-14] MEDS: cefTRIAXone 1GM/50ML D5W 50 ML IV SCH (16:14)
[2024-04-14] MEDS: DOXYCYCLINE 100MG/250ML 250 ML IV SCH (17:08)
--- NOTE | 2024-04-14 17:08 | DVHPNRES ---
Progress Note Date Seen: Apr 14, 2024 Resident Creating Document: JARETT HUYNH RESIDENT Medical Necessity Reason Pt with a Central, PICC or Fol: No Subjective Review of Systems This is a 38-year-old male patient with PMHx of depression, schizophrenia, herbal palsy, urinary and fecal incontinence, legally blind, the retinopathy, dyslipidemia, hypertension, GERD, idiopathic scoliosis, gastroparesis, asthma who presented to the ER with a chief complaint of nausea/vomiting/diarrhea for the past 3 days along with dysuria. Patient is A&O x4. Per ER documents he was experiencing suicidal ideations as he ran out of medicine. Patient reports that he went to urgent care and was diagnosed with UTI. He was taking cephalexin and Macrobid for the past 4 days following which he experienced watery diarrhea 5 episodes a day for the past 3 days which is foul smelling, denies hematochezia or melena. Associated symptoms include nausea/vomiting and therefore patient could not keep anything down including his medications, he says that therefore he is hearing things and having auditory hallucinations. He feels sad and is mood is low but denies any suicidal or homicidal ideations at this time. Home medications atorvastatin baclofen, Jardiance, levothyroxine, oxcarbazepine, clozapine, nifedipine, olanzapine, venlafaxine Social history Lives with his . His insight. Reports feeling safe at home. Denies smoking/drinking/lifetime drug history. Patient seen and examined at bedside. He is wheelchair-bound. Is altered oriented x4. Objective vital signs Vital Sign Date Time Temp Pulse Resp B/P (MAP) Pulse Ox O2 Delivery O2 Flow Rate FiO2 04/14/24 14:02 98.3 76 18 136/88 (104) 93 98.3 04/14/24 10:38 0.0 21 04/14/24 10:38 Room Air* Total Intake and Output 04/13/24 04/13/24 04/14/24 15:00 23:00 07:00 Intake Total 240 ml Output Total 150 ml Balance 90 ml medications Current Medications Medications Dose Ordered Sig/Demian Route Start Time Stop Time Status Last Admin Dose Admin Sodium Chloride 1,000 ml @ 75 mls/hr [id number] IV 04/13/24 22:30 04/14/24 03:11 75 MLS/HR Acetaminophen 325 mg Q4HP PRN PO 10/25/24 22:30 Acetaminophen/ Hydrocodone Bitart 1 tab Q4HP PRN PO 04/13/24 22:30 04/14/24 02:59 1 TAB Ondansetron HCl 4 mg Q4HP PRN IV 04/13/24 22:30 04/14/24 10:58 4 MG Enoxaparin Sodium 40 mg DAILY SC 04/14/24 10:00 04/14/24 10:50 40 MG Nitroglycerin 0.4 mg Q5MINP PRN SL 04/13/24 22:30 Morphine Sulfate 2 mg Q30M PRN IV 04/13/24 22:30 Levothyroxine Sodium 50 mcg QAM@0600 PO 04/14/24 06:00 04/14/24 05:56 50 MCG Gabapentin 300 mg TID PO 04/14/24 06:00 04/14/24 15:23 300 MG Pantoprazole Sodium 40 mg DAILY@0600 PO 04/14/24 06:00 04/14/24 05:56 40 MG Lisinopril 5 mg DAILY PO 04/14/24 10:00 04/14/24 10:42 5 MG Acetaminophen 500 mg Q6HR PO 04/14/24 12:00 04/14/24 10:49 500 MG Ipratropium [place] 0.5 mg Q6HPRN PRN NEB 04/14/24 10:45 Levalbuterol HCl 0.625 mg Q6HPRN PRN NEB 04/14/24 10:45 Mirtazapine 15 mg HS PO 04/14/24 22:00 Olanzapine 5 mg TID PO 04/14/24 22:00 Ceftriaxone Sodium 50 ml @ 100 mls/hr DAILY@09 IV 04/14/24 15:15 04/14/24 16:14 100 MLS/HR Doxycycline Hyclate 250 ml @ 125 mls/hr Q12H IV 04/14/24 15:15 Examination Young male patient lying in bed, in no acute distress. Sitter present at bedside. Reports headache. General: Patient is legally blind, afebrile, palor, mucosae are moist. Nystagmus seen Cardiovascular: Tachycardia but regular S1 and S2. No murmurs, gallops or rubs. No JVD elevation. No pedal edema Respiratory: Normal B/L air entry on room air. Clear lung sounds on auscultation Abdomen: Soft, nontender, diffusely tender at the lower quadrant and the suprapubic region, normoactive bowel sounds, no rebound tenderness, no organomegaly, no masses. Testicular tenderness. White color urethral discharge noticed at the urethral meatus after the foreskin is retracted. Genitourinary: Deferred MSK/skin: Mobilizes 4 limbs. Skin is dry and warm Neurological: Patient is ambulatory and was seen transferring himself with a wheelchair and upright in the wheelchair to the toilet. Psych/Mental Status: A/Ox4, mood is dull, no suicidal/homicidal ideations at this time. laboratory and microbiology Laboratory Tests 04/14/24 09:14 Test 04/14/24 09:14 Range/Units Serum Glucose 120 H 74-106 mg/dL Labs and/or images reviewed: Labs reviewed by me, Image(s) reviewed by me Problem List/Assessment/Plan Problem List/Assessment/Plan Thick white discharge at urethral meatus and testicular tenderness ? Urethritis versus orchitis Gonorrhea/chlamydia ureteral sample sent, testing pending IV ceftriaxone and IV doxycycline started 04/14 Patient has mild penicillin allergy 10 years ago says gets mild vomiting Ondansetron q.4 p.r.n. Blood culture pending Acute Gastroenteritis, history of antibiotic use - rule out C diff C diff testing pending Occult blood negative IV NS running at 75 cc/hour Probable cystitis Recent history of UTI 4 days Patient took Keflex and Macrobid for 4 days, reports dysuria Started ceftriaxone 04/14 UA completed, shows 4+ glucose otherwise unremarkable Urine culture pending Diabetes mellitus type 2 - hemoglobin A1c 7.0 ? New onset Initiated mild ISS Diabetic education provided UA positive for 4+ glucose, microalbumin pending ? Suicidal ideation - sitter present at bedside Schizoaffective disorder and anxiety Tele psych consulted - recommend 5150 hold for danger to self and grave disability. Started Remeron 15 mg p.o. q.h.s. and Zyprexa 5 mg p.o. t.i.d.. History of migraine headache Continue home dose of sumatriptan 50 mg daily History of cerebral palsy -wheelchair-bound Continue baclofen 20 mg p.o. daily Hypothyroidism Continue home medication levothyroxine 50 mcg p.o. daily Asthma-controlled Levalbuterol and ipratropium nebulized treatment Hypertension Continue home medication lisinopril 5 mg p.o. daily Dyslipidemia Continue atorvastatin 40 mg p.o. daily DVT prophylaxis Lovenox 40 mg sc daily Plan discussed with patient in which all questions have been answered Goals of care discussed with patient for 20 minutes, full code status Plan discussed with Dr. Mancilla Plan discussed with: Patient, Other (RN) My Orders My Orders Orders - JARETT HUYNH RESIDENT Procedure Category Date Status Time Acetaminophen Tablet PHA 04/14/24 In Process (Tylenol Tablet) 12:00 Urine Bacterial TIFFANY 04/14/24 In Process Culture 10:10 Clostridium Difficile TIFFANY 04/14/24 In Process Toxin 10:10 Stool Bacterial TIFFANY 04/14/24 In Process Culture 10:10 Vitamin B12 LAB 04/14/24 In Process 10:19 Vitamin D, 25-Hydroxy LAB 04/14/24 In Process 10:19 Chlamydia/Gc LAB 04/14/24 In Process Amplification 10:33 Ipratropium Medneb PHA 04/14/24 In Process (Atrovent Medneb) 10:45 Levalbuterol Hcl PHA 04/14/24 In Process (Xopenex Medneb) 10:45 Blood Culture TIFFANY 04/14/24 Logged 15:09 Strict Aspiration MAHENDRA 04/14/24 In Process Precautions 15:09 Communication Order ORDERS 04/14/24 Transmitted 15:09 Ceftriaxone 1gm/50ml PHA 04/14/24 In Process D5w (Rocephin) 15:15 Doxycycline PHA 04/14/24 In Process 100mg/250ml 15:15 Addendum Addendum Addendum I was physically present for the ivy portions of the service provided to patient by THE RESIDENT. I have reviewed the documentation, discussed the case with resident and agree with the resident's documentation except as noted. Also the patient's clinical case was discussed with the patient's nurse. This medical document was created using an electronic medical record system with computerized dictation system. Although this document has been carefully reviewed, there might still be some phonetic and typographical errors. These areas are purely typographical due to imperfections of the software programs, and do not reflect any compromise in the patient's medical care. Late signature. Date of Service: Apr 14, 2024 Billing Provider: HENRIK MANCILLA MD Common Visit Codes: [id number] INP/OBS CARE(HIGH) Secondary Visit Codes: [id number] CARE PLAN 30 MINUTES (20 minutes) JARETT HUYNH Apr 14, 2024 17:08 HENRIK MANCILLA MD Apr 15, 2024 06:07
[2024-04-14] MEDS ORDERED: DEXTROSE (50%) 50ML SYRG IV PRN (17:15)
[2024-04-14] MEDS: ACCU-CHEK COMFORT CURVE STRIP VI SCH (18:00)
[2024-04-14] MEDS: FAMOTIDINE (10MG/ML) 2ML VL IV ONE (18:20)
[2024-04-14] MEDS: diphenhdrAMINE HCL 50 MG/1 ML VL IV ONE (18:20)
[2024-04-14] MEDS: BACLOFEN 10 MG TAB PO SCH (18:21)
[2024-04-14] MEDS: LEVALBUTEROL HCL 1.25 MG/3 ML NEB NEB PRN (19:51)
[2024-04-14] MEDS: IPRATROPIUM BROM 0.5 MG/2.5ML INH SOL NEB PRN (19:51)
[2024-04-14] MEDS: InsuLIN REG 1unit/0.01ml Soln (100units/ml) SC SCH (20:27)
[2024-04-14] MEDS: ATORVASTATIN 20 MG TAB PO SCH (20:28)
[2024-04-14] MEDS: OLANZapine 5 MG TAB PO SCH (20:28)
[2024-04-14] MEDS: MIRTAZAPINE 30 MG TAB PO SCH (21:09)
[2024-04-14] MEDS ORDERED: MIRTAZAPINE 30 MG TAB PO SCH (22:00)
[2024-04-14] MEDS ORDERED: OLANZapine 5 MG TAB PO SCH (22:00)
[2024-04-15] VITALS (7 sets, daily range): BP systolic 118–145; BP diastolic 84–89; PULSE 69–91; RESP 16–20; TEMP 98.4; O2SAT 91–98
[2024-04-15 07:58] LABS: Chloride 104 mmol/L (98-107); Potassium 4.2 mmol/L (3.5-5.1); Sodium 138 mmol/L (136-145)
[2024-04-15 07:59] LABS: Anion Gap 6 (5-15); Calcium 9.5 mg/dL (8.7-10.4); Carbon Dioxide 28 mmol/L (20-31)
[2024-04-15 08:04] LABS: BUN/Creatinine Ratio 10.9 (10.0-20.0); Blood Urea Nitrogen 12 mg/dL (9-23); Glucose 131 mg/dL (74-106)
[2024-04-15] MEDS ORDERED: SUMAtriptan SUCCINATE 25 MG TAB PO PRN (12:00)
[2024-04-15] MEDS ORDERED: BUTALBITAL PO PRN (12:45)
[2024-04-15] MEDS ORDERED: ACETAMINOPHEN PO PRN (12:45)
[2024-04-15] MEDS ORDERED: CAFFEINE PO PRN (12:45)
[2024-04-15] MEDS ORDERED: [UNRECOGNIZED DRUG - OTHER] PO PRN (12:45)
[2024-04-15] MEDS ORDERED: SUMATRIPTAN PO PRN (12:45)
--- NOTE | 2024-04-15 19:40 | DVHPNRES ---
Progress Note Date Seen: Apr 15, 2024 Resident Creating Document: MERVNI CHRISTIANSON RESIDENT Medical Necessity Reason Pt with a Central, PICC or Fol: No Subjective Review of Systems pt seen and examined at bedside. He is mentioning of no suicidal evaluation as of now, mentions improvement in his mood and symptoms of painful urination, and penile area pain denied any testicular pain mentions improvement in his symptoms of loose stools/n/v. mentions he had never been sexually active ROS Constitutional: No: Fever, Chills, Sweats, Weakness, Malaise, Other Eyes: No: Pain, Vision change, Conjunctivae inflammation, Eyelid inflammation, Other, Redness ENT: No: Ear pain, Ear discharge, Nose pain, Nose discharge, Nose congestion, Mouth pain, Mouth swelling, Throat pain, Throat swelling, Other Respiratory: No: Cough, Dry, Shortness of breath, SOB with excertion, Wheezing, Hemoptysis, Pleuritic Pain, Sputum, Wheezing, Other Cardiovascular: No: Chest Pain, Palpitations, Orthopnea, Paroxysmal Noc. Dyspnea, Edema, Lt Headedness, Other Gastrointestinal: Nausea, vomiting, loose stools No: Constipation, Melena, Hematochezia, Other Musculoskeletal: No: other, neck pain, shoulder pain, arm pain, back pain, hand pain, leg pain, foot pain Neurological:; No: Weakness, Numbness, Incoordination, Change in speech, Confusion, Seizures urological : Dysuria, penile area pain Objective vital signs Vital Sign Date Time Temp Pulse Resp B/P (MAP) Pulse Ox O2 Delivery O2 Flow Rate FiO2 04/15/24 17:00 98.4 71 20 145/89 (107) 94 98.4 04/15/24 11:38 Nasal Cannula* 3 32 Total Intake and Output 04/14/24 04/14/24 04/15/24 15:00 23:00 07:00 Intake Total 2125 ml 1050 ml Output Total 400 ml 1350 ml Balance 1725 ml -300 ml medications Current Medications Medications Dose Ordered Sig/Demian Route Start Time Stop Time Status Last Admin Dose Admin Sodium Chloride 1,000 ml @ 75 mls/hr [id number] IV 04/13/24 22:30 04/15/24 12:17 75 MLS/HR Acetaminophen 325 mg Q4HP PRN PO 04/13/24 22:30 Acetaminophen/ Hydrocodone Bitart 1 tab Q4HP PRN PO 04/13/24 22:30 04/14/24 02:59 1 TAB Ondansetron HCl 4 mg Q4HP PRN IV 04/13/24 22:30 04/14/24 10:58 4 MG Enoxaparin Sodium 40 mg DAILY SC 04/14/24 10:00 04/15/24 09:04 40 MG Nitroglycerin 0.4 mg Q5MINP PRN SL 04/13/24 22:30 Morphine Sulfate 2 mg Q30M PRN IV 04/13/24 22:30 Levothyroxine Sodium 50 mcg QAM@0600 PO 04/14/24 06:00 04/15/24 05:18 50 MCG Gabapentin 300 mg TID PO 04/14/24 06:00 04/15/24 13:34 300 MG Pantoprazole Sodium 40 mg DAILY@0600 PO 04/14/24 06:00 04/15/24 05:18 40 MG Lisinopril 5 mg DAILY PO 04/14/24 10:00 04/15/24 09:16 5 MG Acetaminophen 500 mg Q6HR PO 04/14/24 12:00 04/15/24 18:03 500 MG Ipratropium [place] 0.5 mg Q6HPRN PRN NEB 04/14/24 10:45 04/15/24 11:35 0.5 MG Levalbuterol HCl 0.625 mg Q6HPRN PRN NEB 04/14/24 10:45 04/15/24 11:35 0.625 MG Ceftriaxone Sodium 50 ml @ 100 mls/hr DAILY@09 IV 04/14/24 15:15 04/15/24 09:04 100 MLS/HR Doxycycline Hyclate 250 ml @ 125 mls/hr Q12H IV 04/14/24 15:15 04/15/24 14:44 125 MLS/HR Mirtazapine 15 mg HS PO 04/14/24 22:00 04/14/24 21:09 15 MG Olanzapine 5 mg TID PO 04/14/24 22:00 04/15/24 13:34 5 MG Atorvastatin Calcium 40 mg HS PO 04/14/24 22:00 04/14/24 20:28 40 MG Baclofen 20 mg DAILY PO 04/14/24 17:15 04/15/24 09:04 20 MG Diagnostic Test (Pha) 1 strip Q6HR 04/14/24 18:00 04/15/24 18:03 1 STRIP Insulin Human Regular IQ4HR SC 04/14/24 20:00 04/15/24 16:14 4 UNITS Dextrose 50 ml UD PRN IV 04/14/24 17:15 Patient Own Medication 1 Q6H PRN PO 04/15/24 12:45 Patient Own Medication 50 Q2HP PRN PO 04/15/24 12:45 Examination General: Patient is legally blind, afebrile, palor, mucosae are moist. Nystagmus seen Cardiovascular: Tachycardia but regular S1 and S2. No murmurs, gallops or rubs. No JVD elevation. No pedal edema Respiratory: Normal B/L air entry on room air. Clear lung sounds on auscultation Abdomen: Soft, nontender, diffusely tender at the lower quadrant and the suprapubic region, normoactive bowel sounds, no rebound tenderness, no organomegaly, no masses. no Testicular tenderness. white lesions in penile area when foreskin is retracted Genitourinary: Deferred MSK/skin: Mobilizes 4 limbs. Skin is dry and warm Neurological: Patient uses wheelchair Psych/Mental Status: A/Ox4, mood is dull, no suicidal/homicidal ideations at this time. laboratory and microbiology Laboratory Tests 04/15/24 06:30 04/14/24 09:14 Test 04/15/24 06:30 Range/Units Serum Glucose 131 H 74-106 mg/dL Microbiology Date/Time Source Procedure Growth Status 04/14/24 16:37 Blood Blood Culture - Preliminary NO GROWTH AFTER 24 HOURS OF INCUBATION. Resulted 04/14/24 11:10 Voided Urine Urine Culture - Preliminary Resulted 04/14/24 10:37 Stool Stool Culture - Preliminary Resulted 04/14/24 10:37 Stool Shiga Toxin I & II - Final Resulted 04/14/24 10:37 Stool Clostridium difficile Toxin Assay - Final Resulted Labs and/or images reviewed: Labs reviewed by me, Image(s) reviewed by me Problem List/Assessment/Plan Problem List/Assessment/Plan Assessment/plan #UTI -continue IV ceftriaxone -urine culture #?urethritis ?orchitis -Gonorrhea/chlamydia ureteral sample sent, testing pending IV ceftriaxone and IV doxycycline started 04/14 -ordered iv fluconazole for ?fungal coverage -ordered mumps IgG #Intractable diarrhea -stool studies including cdiff -IV ceftriaxone -starting iv flagyl #DM2 -sliding scale insulin #Suicidal idea, Severe depression -telepsych evaluation ordered, resumed home Meds based on recommendation by psychiatrist, Remeron 15 mg p.o. q.h.s. and Zyprexa 5 mg p.o. t.i.d.. -re-evaluation in the AM #Migraine -resume home meds #Hypothyroidism -resume home meds #Cerebral palsy -resume home meds #HTN -continue home meds #Asthma -neb with ipratropium and albuterol prn #Dyslipidemia -resume home meds #DVT prophylaxis -Lovenox 40mg daily Case discussion with Dr. Mancilla Plan discussed with: Patient, Other (RN) Addendum Addendum Addendum I was physically present for the ivy portions of the service provided to patient by THE RESIDENT. I have reviewed the documentation, discussed the case with resident and agree with the resident's documentation except as noted. Also the patient's clinical case was discussed with the patient's nurse. This medical document was created using an electronic medical record system with computerized dictation system. Although this document has been carefully reviewed, there might still be some phonetic and typographical errors. These areas are purely typographical due to imperfections of the software programs, and do not reflect any compromise in the patient's medical care. Late signature. Date of Service: Apr 15, 2024 Billing Provider: HENRIK MANCILLA MD Common Visit Codes: [id number] INP/OBS CARE(HIGH) MERVIN CHRISTIANSON RESIDENT Apr 15, 2024 19:40 HENRIK MANCILLA MD Apr 16, 2024 10:25
[2024-04-15] MEDS: metroNIDAZOLE 500MG/100ML 100 ML IV SCH (23:15)
[2024-04-16] VITALS (8 sets, daily range): BP systolic 116–140; BP diastolic 69–92; PULSE 60–95; RESP 18–21; TEMP 97.6–98.5; O2SAT 94–97
[2024-04-16] MEDS: FLUCONAZOLE 200MG/100ML 100 ML IV ONE (00:22)
[2024-04-16] MEDS: PANTOPRAZOLE 40 MG TAB PO SCH (06:22)
[2024-04-16 06:30] LABS: Chloride 105 mmol/L (98-107); Potassium 3.9 mmol/L (3.5-5.1); Sodium 140 mmol/L (136-145)
[2024-04-16 06:31] LABS: Anion Gap 9 (5-15); Basophils # (auto) 0.1 10 ^3/uL (0-0.2); Basophils % (auto) 0.8 % (0.0-2.0); Carbon Dioxide 26 mmol/L (20-31); Eosinophils # (auto) 0.4 10 ^3/uL (0-0.8); Eosinophils % (auto) 4.2 % (0.0-7.0); Hematocrit 40.3 % (41.0-53.0); Hemoglobin 13.4 g/dL (13.5-17.5); Lymphocytes # (auto) 2.5 10 ^3/uL (0.4-5.4); Lymphocytes % (auto) 29.6 % (10.0-50.0); Mean Corpuscular Hemoglobin 27.9 pg (28.0-32.0); Mean Corpuscular Hgb Conc. 33.3 g/dL (32.0-36.0); Mean Corpuscular Volume 83.6 fL (80.0-100.0); Monocytes # (auto) 0.7 10 ^3/uL (0-1.3); Monocytes % (auto) 8.6 % (0.0-12.0); Neutrophils # (auto) 4.8 10 ^3/uL (1.6-8.6); Neutrophils % (auto) 56.8 % (37.0-80.0); Nucleated Red Blood Cells % 0.1 %; Platelet Count (auto) 254 10^3/uL (140-450); Red Blood Cells 4.82 10^6/uL (4.5-5.90); Red Cell Distribution Width 15.6 % (11.8-14.3); White Blood Cell 8.5 10^3/uL (4.4-10.8)
[2024-04-16 06:32] LABS: Calcium 9.5 mg/dL (8.7-10.4)
[2024-04-16 06:36] LABS: BUN/Creatinine Ratio 10.1 (10.0-20.0); Blood Urea Nitrogen 10 mg/dL (9-23); Glucose 129 mg/dL (74-106)
[2024-04-16] MEDS: FLUCONAZOLE 200MG/100ML 100 ML IV SCH (09:20)
--- NOTE | 2024-04-16 14:19 | TELE.CONS ---
04/16/24 1410 The patient was seen and evaluated at [facility] via telepsychiatry platform. 38 yr old male was seen by psychiatrist Dr Villagomez on 04/14 and diagnosed with schizoaffective disorder and started on zyprexa 5mg tid and remeron 15mg qhs. He reported his home meds are remeron and lybalvi. He sees his psychiatrist tomorrow via telemedicine. He noted he has enough of his medications at home. He feels comfortable heading home to [place] where he lives with his . He denied having SI/HI/AVH. MSE: Alert, oriented male lying in bed cooperative and forthcoming speech-regular, rate, rhythm and volume no psychomotor abnormality Mood-"great" Affect-pleasant, calm, euthymic, congruent Tht process-linear and goal directed Tht Content-Denied having suicidal ideation, plan or intent. denied HI/AVH Insight-fair Judgment-fair Impulse control-intact Diagnosis: SCHIZOAFFECTIVE DISORDER Assessment: This 38 yr old male appears to suffer from schizoaffective but is no longer suicidal and does not desire psychiatric hospitalization. He does not meet criteria for involuntary hospitalization. He may benefit from continuing on zyprexa and mirtazapine and following up with his outpatient psychiatrist. Plan: 1. The patient is a low risk for self harm and may be managed as an outpatient. 2. Legal-discontinue involuntary hold; discontinue 1:1 sitter. 3. Medications- continue outpatient medications. 4. Follow up with outpatient mental health for medication management and therapy. 5. Case discussed with CATRACHITO Ngo. 6. Please contact psychiatry if further follow up or reevaluation is desired. Yes KATTY WOOTEN MD Apr 16, 2024 14:19
--- NOTE | 2024-04-16 19:58 | DVHPNRES ---
Progress Note Date Seen: Apr 16, 2024 Resident Creating Document: JARETT HUYNH RESIDENT Medical Necessity Reason Pt with a Central, PICC or Fol: No Subjective Review of Systems This is a 38-year-old male patient with PMHx of depression, schizophrenia, herbal palsy, urinary and fecal incontinence, legally blind, the retinopathy, dyslipidemia, hypertension, GERD, idiopathic scoliosis, gastroparesis, asthma who presented to the ER with a chief complaint of nausea/vomiting/diarrhea for the past 3 days along with dysuria. Patient is A&O x4. Per ER documents he was experiencing suicidal ideations as he ran out of medicine. Patient reports that he went to urgent care and was diagnosed with UTI. He was taking cephalexin and Macrobid for the past 4 days following which he experienced watery diarrhea 5 episodes a day for the past 3 days which is foul smelling, denies hematochezia or melena. Associated symptoms include nausea/vomiting and therefore patient could not keep anything down including his medications, he says that therefore he is hearing things and having auditory hallucinations. He feels sad and is mood is low but denies any suicidal or homicidal ideations at this time. Home medications atorvastatin baclofen, Jardiance, levothyroxine, oxcarbazepine, clozapine, nifedipine, olanzapine, venlafaxine Social history Lives with his . His insight. Reports feeling safe at home. Denies smoking/drinking/lifetime drug history. 04/16 AM - patient is feeling fine, no acute distress. Reports that he does not hear anymore auditory hallucinations. No suicidal ideations mellitus tele psych consulted - recommended discontinue involuntary hold, discontinue 1-1 sitter. Continue outpatient follow up. 04/08 p.m.-patient reports getting a call from family that his father is sick and terminally ill, patient reports hearing auditory hallucinations and that he would hurt himself if he goes home. Discharge held. 1-1 sitter arranged. Tele psych consult 04/17 pending. Objective vital signs Vital Sign Date Time Temp Pulse Resp B/P (MAP) Pulse Ox O2 Delivery O2 Flow Rate FiO2 04/16/24 18:53 97 Nasal Cannula* 2 28 04/16/24 17:00 98.2 95 20 133/92 (106) 98.2 Total Intake and Output 04/15/24 04/15/24 04/16/24 15:00 23:00 07:00 Intake Total 50 ml 900 ml 2150 ml Output Total 400 ml 200 ml Balance 50 ml 500 ml 1950 ml medications Current Medications Medications Dose Ordered Sig/Demian Route Start Time Stop Time Status Last Admin Dose Admin Acetaminophen 325 mg Q4HP PRN PO 04/13/24 22:30 Acetaminophen/ Hydrocodone Bitart 1 tab Q4HP PRN PO 04/13/24 22:30 04/14/24 02:59 1 TAB Ondansetron HCl 4 mg Q4HP PRN IV 04/13/24 22:30 04/14/24 10:58 4 MG Enoxaparin Sodium 40 mg DAILY SC 04/14/24 10:00 04/16/24 09:21 40 MG Nitroglycerin 0.4 mg Q5MINP PRN SL 04/13/24 22:30 Morphine Sulfate 2 mg Q30M PRN IV 04/13/24 22:30 Levothyroxine Sodium 50 mcg QAM@0600 PO 04/14/24 06:00 04/16/24 06:22 50 MCG Gabapentin 300 mg TID PO 04/14/24 06:00 04/16/24 16:52 300 MG Lisinopril 5 mg DAILY PO 04/14/24 10:00 04/16/24 09:21 5 MG Acetaminophen 500 mg Q6HR PO 04/14/24 12:00 04/16/24 17:57 500 MG Ipratropium [place] 0.5 mg Q6HPRN PRN NEB 04/14/24 10:45 04/15/24 11:35 0.5 MG Levalbuterol HCl 0.625 mg Q6HPRN PRN NEB 04/14/24 10:45 04/15/24 11:35 0.625 MG Ceftriaxone Sodium 50 ml @ 100 mls/hr DAILY@09 IV 04/14/24 15:15 04/16/24 09:20 100 MLS/HR Doxycycline Hyclate 250 ml @ 125 mls/hr Q12H IV 04/14/24 15:15 04/16/24 16:53 125 MLS/HR Mirtazapine 15 mg HS PO 04/14/24 22:00 04/15/24 21:48 15 MG Olanzapine 5 mg TID PO 04/14/24 22:00 04/16/24 16:52 5 MG Atorvastatin Calcium 40 mg HS PO 04/14/24 22:00 04/15/24 21:50 40 MG Baclofen 20 mg DAILY PO 04/14/24 17:15 04/16/24 09:21 20 MG Diagnostic Test (Pha) 1 strip Q6HR 04/14/24 18:00 04/16/24 06:23 1 STRIP Insulin Human Regular IQ4HR SC 04/14/24 20:00 04/15/24 16:14 4 UNITS Dextrose 50 ml UD PRN IV 04/14/24 17:15 Patient Own Medication 1 Q6H PRN PO 04/15/24 12:45 Patient Own Medication 50 Q2HP PRN PO 04/15/24 12:45 Fluconazole 100 ml @ 100 mls/hr DAILY IV 04/16/24 10:00 04/16/24 09:20 100 MLS/HR Metronidazole 100 ml @ 100 mls/hr Q8HR IV 04/15/24 22:00 04/16/24 16:53 100 MLS/HR Pantoprazole Sodium 40 mg DAILY@0600 PO 04/16/24 06:00 04/16/24 06:22 40 MG Examination Young male patient lying in bed, in no acute distress. Sitter present at bedside. Reports headache. General: Patient is legally blind, afebrile, palor, mucosae are moist. Nystagmus seen Cardiovascular: Tachycardia but regular S1 and S2. No murmurs, gallops or rubs. No JVD elevation. No pedal edema Respiratory: Normal B/L air entry on room air. Clear lung sounds on auscultation Abdomen: Soft, nontender, diffusely tender at the lower quadrant and the suprapubic region, normoactive bowel sounds, no rebound tenderness, no organomegaly, no masses. Testicular tenderness. White color urethral discharge noticed at the urethral meatus after the foreskin is retracted. Genitourinary: Deferred MSK/skin: Mobilizes 4 limbs. Skin is dry and warm Neurological: Patient is ambulatory and was seen transferring himself with a wheelchair and upright in the wheelchair to the toilet. Psych/Mental Status: A/Ox4, mood is dull laboratory and microbiology Laboratory Tests 04/16/24 05:30 Test 04/16/24 05:30 Range/Units Serum Glucose 129 H 74-106 mg/dL Microbiology Date/Time Source Procedure Growth Status 04/14/24 16:37 Blood Blood Culture - Preliminary NO GROWTH AFTER 48 HOURS OF INCUBATION. Resulted 04/14/24 11:10 Voided Urine Urine Culture - Final Complete 04/14/24 10:37 Stool Stool Culture - Final Complete 04/14/24 10:37 Stool Shiga Toxin I & II - Final Complete 04/14/24 10:37 Stool Clostridium difficile Toxin Assay - Final Complete Labs and/or images reviewed: Labs reviewed by me, Image(s) reviewed by me Problem List/Assessment/Plan Problem List/Assessment/Plan Thick white discharge at urethral meatus and testicular tenderness ? Urethritis versus orchitis Gonorrhea/chlamydia ureteral sample sent, testing pending IV ceftriaxone and IV doxycycline started 04/14 IV fluconazole daily starting 04/15 Patient has mild penicillin allergy 10 years ago says gets mild vomiting Ondansetron q.4 p.r.n. Blood culture prelim unremarkable Mumps IgG pending Acute Gastroenteritis, history of antibiotic use - ruled out C diff C diff testing negative, ruled out Shigella/Campylobacter as the stool culture is negative. Occult blood negative IV NS running at 75 cc/hour Acute cystitis Recent history of UTI 4 days prior to admission Patient took Keflex and Macrobid for 4 days, reports dysuria Started ceftriaxone 04/14 IV fluconazole daily starting 04/15 UA completed, shows 4+ glucose otherwise unremarkable Urine culture negative Diabetes mellitus type 2 - hemoglobin A1c 7.0 ? New onset Initiated mild ISS Diabetic education provided UA positive for 4+ glucose, microalbumin pending ? Suicidal ideation - sitter present at bedside Schizoaffective disorder and anxiety Tele psych consulted on admission - recommend 5150 hold for danger to self and grave disability. Started Remeron 15 mg p.o. q.h.s. and Zyprexa 5 mg p.o. t.i.d.. Tele psych pending for 04/17. History of migraine headache Continue home dose of sumatriptan 50 mg daily History of cerebral palsy -wheelchair-bound Continue baclofen 20 mg p.o. daily Hypothyroidism Continue home medication levothyroxine 50 mcg p.o. daily Asthma-controlled Levalbuterol and ipratropium nebulized treatment Hypertension Continue home medication lisinopril 5 mg p.o. daily Dyslipidemia Continue atorvastatin 40 mg p.o. daily DVT prophylaxis Lovenox 40 mg sc daily Plan discussed with patient in which all questions have been answered Goals of care discussed with patient for more than 22 minutes, full code status Plan discussed with Dr. Joseph. Patient reports hearing auditory hallucinations and that he would hurt himself if he goes home. Discharge held. 1-1 sitter arranged. Tele psych consult 04/17 pending. Plan discussed with: Patient My Orders My Orders Orders - JARETT HUYNH Procedure Category Date Status Time * Director Of Acquisitions CONS 04/16/24 Transmitted Consult 09:16 *Tele Psych Consult CONS 04/17/24 Transmitted 10:00 Sitter 1:1 ORDERS 04/16/24 Transmitted 18:44 Date of Service: Apr 16, 2024 Billing Provider: LESLI JOSEPH MD Common Visit Codes: [id number] INP/OBS CARE(HIGH) Secondary Visit Codes: [id number] CARE PLAN 30 MINUTES JARETT HUYNH Apr 16, 2024 19:58 LESLI JOSEPH MD Apr 17, 2024 08:50
[2024-04-17 01:00] VITALS: BP 113/70; PULSE 73; RESP 19; TEMP 98.3; O2SAT 97
[2024-04-17 02:06] LABS: Chlamydia Trachomatis, NAA Negative (Negative); Neisseria gonorrhoeae, NAA Negative (Negative)
[2024-04-17 05:00] VITALS: BP 103/70; PULSE 71; RESP 19; TEMP 98.5; O2SAT 95
[2024-04-17 07:18] VITALS: O2SAT 98
--- NOTE | 2024-04-17 08:53 | TELE.CONS ---
04/17/24 4829 The patient was seen and evaluated at [facility] via telepsychiatry platform. 38 yr old male was seen by me yesterday afternoon. Later that day he told Dr Cabral he wasn't sure if he'd hurt himself if he went home, so Dr Cabral had him stay overnight. The patient reported that he now feels comfortable returning home to [place] with his . He stated he has an appointment with his psychiatrist and therapist later today. He stated he would talk with them about his issues and does not feel suicidal at this time. He denied having SI/HI/AVH. MSE: Alert, oriented male lying in bed cooperative and forthcoming speech-regular, rate, rhythm and volume no psychomotor abnormality Mood-"good" Affect-euthymic, congruent Tht process-linear and goal directed Tht Content-Denied having suicidal ideation, plan or intent. denied HI/AVH Insight-fair Judgment-fair Impulse control-intact Diagnosis: SCHIZOAFFECTIVE DISORDER Assessment: This 38 yr old male appears to suffer from schizoaffective but is no longer suicidal. He is psychologically cleared for discharge He may benefit from continuing on zyprexa and mirtazapine and following up with his outpatient psychiatrist. Plan: 1. The patient is a low risk for self harm and may be managed as an outpatient. 2. Legal-voluntary. 3. Medications- continue outpatient medications. 4. Follow up with outpatient mental health for medication management and therapy. 5. Case discussed with CATRACHITO Ngo. 6. Please contact psychiatry if further follow up or reevaluation is desired. Yes KATTY WOOTEN MD Apr 17, 2024 08:53
[2024-04-17 08:54] VITALS: BP 141/85; PULSE 77; RESP 17; TEMP 98.1; O2SAT 94
[2024-04-17 09:14] VITALS: BP 141/85; PULSE 71; RESP 22; O2SAT 98
--- NOTE | 2024-04-17 09:27 | DVHDSRES ---
Discharge Summary Date of Admission Resident Creating Document: JARETT HUYNH RESIDENT Apr 13, 2024 at 22:17 Date of Discharge: Apr 17, 2024 Labs/Diagnostic Data: Laboratory Results Test 04/17/24 03:22 04/16/24 05:30 04/14/24 13:40 04/14/24 11:10 POC Glucose 132 mg/dl (70-106) White Blood Count 8.5 10^3/uL (4.4-10.8) Red Blood Count 4.82 10^6/uL (4.5-5.90) Hemoglobin 13.4 g/dL (13.5-17.5) Hematocrit 40.3 % (41.0-53.0) Mean Corpuscular Volume 83.6 fL (80.0-100.0) Mean Corpuscular Hemoglobin 27.9 pg (28.0-32.0) Mean Corpuscular Hemoglobin Concent 33.3 g/dL (32.0-36.0) Red Cell Distribution Width 15.6 % (11.8-14.3) Platelet Count 254 10^3/uL (140-450) Mean Platelet Volume 7.6 fL (6.9-10.8) Neutrophils (%) (Auto) 56.8 % (37.0-80.0) Lymphocytes (%) (Auto) 29.6 % (10.0-50.0) Monocytes (%) (Auto) 8.6 % (0.0-12.0) Eosinophils (%) (Auto) 4.2 % (0.0-7.0) Basophils (%) (Auto) 0.8 % (0.0-2.0) Neutrophils # (Auto) 4.8 10 ^3/uL (1.6-8.6) Lymphocytes # (Auto) 2.5 10 ^3/uL (0.4-5.4) Monocytes # (Auto) 0.7 10 ^3/uL (0-1.3) Eosinophils # (Auto) 0.4 10 ^3/uL (0-0.8) Basophils # (Auto) 0.1 10 ^3/uL (0-0.2) Nucleated Red Blood Cells 0.1 % Sodium Level 140 mmol/L (136-145) Potassium Level 3.9 mmol/L (3.5-5.1) Chloride Level 105 mmol/L (98-107) Carbon Dioxide Level 26 mmol/L (20-31) Anion Gap 9 (5-15) Blood Urea Nitrogen 10 mg/dL (9-23) Creatinine 0.99 mg/dL (0.700-1.30) Glomerular Filtration Rate Calc 99 mL/min (>90) BUN/Creatinine Ratio 10.1 (10.0-20.0) Serum Glucose 129 mg/dL (74-106) Calcium Level 9.5 mg/dL (8.7-10.4) Magnesium Level 2.0 mg/dL (1.6-2.6) Mumps Virus IgG Antibody 22.8 AU/mL (Immune >10.9) SARS-CoV-2 Antigen (Rapid) Negative (NEGATIVE) Urine Color Light-yellow (Yellow) Urine Clarity Clear (Clear) Urine pH 7.0 (5.0-9.0) Urine Specific [place] 1.019 (1.001-1.035) Urine Protein Negative (Negative) Urine Ketones Negative (Negative) Urine Blood Negative /uL (Negative) Urine Nitrite Negative (Negative) Urine Bilirubin Negative (Negative) Urine Urobilinogen Normal mg/dL (Negative) Urine Leukocyte Esterase Negative /uL (Negative) Urine RBC 1 /hpf (0 - 3) Urine WBC None seen /hpf (0 - 3) Urine Squamous Epithelial Cells None seen /hpf (<5) Urine Bacteria None seen /hpf (None Seen) Urine Glucose 4+ mg/dL (Normal) Chlamydia trachomatis (FINA) Negative (Negative) Neisseria gonorrhoeae (FINA) Negative (Negative) Test 04/14/24 10:37 04/14/24 09:14 04/13/24 22:37 Stool Occult Blood Negative (Negative) Stool Occult Blood Sample #3 (Negative) Stool for White Cells None seen Hemoglobin A1c 7.0 % A1C (<5.7) Total Bilirubin 0.4 mg/dL (0.2-1.0) Aspartate Amino Transferase (AST) 11 U/L (13-40) Alanine Aminotransferase (ALT) 25 U/L (7-40) Alkaline Phosphatase 65 U/L (46-116) Total Protein 7.4 g/dL (5.7-8.2) Albumin 4.8 g/dL (3.2-4.8) Vitamin B12 Level 445 pg/mL (211-911) Vitamin D 25-Hydroxy 21.3 ng/mL (30.0-100) Thyroid Stimulating Hormone (TSH) 1.29 uIU/mL (0.55-4.78) Urine Opiates Screen Neg (NEGATIVE) Urine Fentanyl Screen Neg (NEGATIVE) Urine Barbiturates Screen Neg (NEGATIVE) Urine Phencyclidine Screen Neg (NEGATIVE) Urine Amphetamines Screen Neg (NEGATIVE) Urine Benzodiazepines Screen Neg (NEGATIVE) Urine Cocaine Screen Neg (NEGATIVE) Urine Cannabinoids Screen Neg (NEGATIVE) Other Laboratory Tests 04/16/24 05:30 Brief Hx & Hospital Course: Krystal Sullivan is a 38-year-old male patient with PMHx of depression, schizophrenia, herbal palsy, urinary and fecal incontinence, legally blind, the retinopathy, dyslipidemia, hypertension, GERD, idiopathic scoliosis, gastroparesis, asthma who presented to the ER with a chief complaint of nausea/vomiting/diarrhea for the past 3 days along with dysuria. Patient is A&O x4. Per ER documents he was experiencing suicidal ideations as he ran out of medicine. Patient reports that he went to urgent care and was diagnosed with UTI. He was taking cephalexin and Macrobid for the past 4 days following which he experienced watery diarrhea 5 episodes a day for the past 3 days which is foul smelling, denies hematochezia or melena. Associated symptoms include nausea/vomiting and therefore patient could not keep anything down including his medications, he says that therefore he is hearing things and having auditory hallucinations. He feels sad and is mood is low but denies any suicidal or homicidal ideations at this time. Lives with his . Reports feeling safe at home. Denies smoking/drinking/lifetime drug history. Home medications atorvastatin baclofen, Jardiance, levothyroxine, oxcarbazepine, clozapine, nifedipine, olanzapine, venlafaxine Updates: 04/16 AM - patient is feeling fine, no acute distress. Reports that he does not hear anymore auditory hallucinations. No suicidal ideations mellitus tele psych consulted - recommended discontinue involuntary hold, discontinue 1-1 sitter. Continue outpatient follow up. 04/16 p.m.-patient reports getting a call from family that his father is sick and terminally ill, patient reports hearing auditory hallucinations and that he would hurt himself if he goes home. Discharge held. 1-1 sitter arranged. Tele psych consult 04/17 pending. During the hospital workup, physical exam showed thick white discharge with the ureteral meatus and testicular tenderness, patient was started on IV ceftriaxone and IV doxycycline starting 04/14 to 04/17, and IV fluconazole starting 04/15 to 04/17. Gonorrhea/chlamydia testing came back negative. Mumps virus IgG antibodies showed that the patient is immune 22.8AU/ml. Prelim blood culture was negative. Patient ran out of his medications and therefore complaint of auditory hallucinations - demanding the patient to hurt himself. Tele psych was consulted 04/13 and patient was diagnosed with schizoaffective disorder and anxiety and 5150 hold was recommended for danger to self and grave disability. We started Remeron 15 mg p.o. q.h.s. and Zyprexa 5 mg PO TID. 04/16-tele psych cleared the patient as the patient was no longer suicidal and does not desire psychiatric hospitalization. Discharge was delayed as later that day, patient reports getting a call from family that his father is sick and terminally ill, patient reports hearing auditory hallucinations and that he would hurt himself if he goes home. Discharge held. 1-1 sitter arranged. Tele psych consult 04/17 completed, patient has low longer suicidal. He is psychologically cleared for discharge. May benefit on continuing Zyprexa and mirtazapine and following up with his outpatient psychiatrist. Patient has a appointment with psychiatrist on 04/17 1:00 p.m.. Patient also had acute gastroenteritis, given the history of recent antibiotic use - C diff studies completed which were negative. Stool culture was negative for Shigella/Campylobacter. Occult blood was negative. Patient's diarrhea was resolved. For acute cystitis, urine culture was done which was negative. UA shows 4+ glucose but otherwise unremarkable. Laboratory workup showed hemoglobin A1c 7.0, patient was diagnosed with diabetes mellitus type 2 new onset and diabetic education was provided. He was counseled regarding dietary modifications. 04/17/2024-patient is hemodynamically, clinically stable, cleared by tele psych, has no HI/SI, and is being therefore discharged home with the recommendation to follow up as outpatient psychiatrist who he has an appointment later this evening and also follow up with his primary care physician in 7-14 days. Examination Young male patient lying in bed, in no acute distress. Sitter present at bedside. Reports headache. General: Patient is legally blind, afebrile, palor, mucosae are moist. Nystagmus seen Cardiovascular: Tachycardia but regular S1 and S2. No murmurs, gallops or rubs. No JVD elevation. No pedal edema Respiratory: Normal B/L air entry on room air. Clear lung sounds on auscultation Abdomen: Soft, nontender, diffusely tender at the lower quadrant and the suprapubic region, normoactive bowel sounds, no rebound tenderness, no organomegaly, no masses. Testicular tenderness. White color urethral discharge noticed at the urethral meatus after the foreskin is retracted. Genitourinary: Deferred MSK/skin: Mobilizes 4 limbs. Skin is dry and warm Neurological: Patient is ambulatory and was seen transferring himself with a wheelchair and upright in the wheelchair to the toilet. Psych/Mental Status: A/Ox4, mood is dull, no SI/HI Consults/Reason for consult Tele psych consulted for HI/SI Condition at Discharge: Stable Final Diagnosis/Problems List Acute cystitis Probable orchitis and urethritis Acute gastroenteritis - resolved Ruled out C diff Ruled out Shigella/salmonella//Campylobacter Diabetes mellitus type 2-hemoglobin A1c 7.0-new onset (education provided) Schizoaffective disorder and anxiety - SI/HI resolved History of migraine headache History of cerebral [id number] Hypothyroidism Asthma-controlled Hypertension Dyslipidemia Schizoaffective disorder Discharge Disposition: Home Discharge Instruct/Medications Diet: Consistent carbohydrate Activity: Light activity Follow Up/Referral: Follow up with Primary care physician in 7 days Follow up with psychiatrist in 7 days Medications: per emr Discharge Statement: "Patient was advised to return to the ER or call 911 if any headaches, dizziness, shortness of breath, chest pain, abdominal pain, bleeding, fevers, or worsening of medical condition. Patient was counseled about treatment plan, medications, possible side effects, patientverbalized understanding. All questions were answered to the best of my ability. This discharge took greater then 30 minutes in planning, reviewing documentation, counseling the patient, and discussing with other team members." ASSESSMENT ASSESSMENT Assessment Acute cystitis Probable orchitis and urethritis Schizoaffective disorder Date of Service: Apr 17, 2024 Billing Provider: LESLI GRIGGS MD Common Visit Codes: 90418-DKS/OBS DISCH DAY >30min JARETT HUYNH RESIDENT Apr 17, 2024 09:27 LESLI GRIGGS MD Apr 17, 2024 11:53
[2024-04-17 09:59] VITALS: BP 141/85; PULSE 77; RESP 17; TEMP 98.1; O2SAT 94
== END 2024-04-17 11:01 | disposition home or self-care (01) | DRG 690 ==
LOC: ER 14:59 → OVERFLOW 22:17 → WEST WING 04-14 02:40
PROVIDERS: ADMIT Internal Medicine; ATTEND Internal Medicine
DX: N30.00 Acute cystitis without hematuria (principal); R45.851 Suicidal ideations; A08.4 Viral intestinal infection, unspecified; F25.1 Schizoaffective disorder, depressive type; K21.9 Gastro-esophageal reflux disease without esophagitis; N34.2 Other urethritis; F41.9 Anxiety disorder, unspecified; F32.A Depression, unspecified; J45.909 Unspecified asthma, uncomplicated; G43.909 Migraine, unspecified, not intractable, without status migrainosus; N45.2 Orchitis; Z99.3 Dependence on wheelchair; Z80.0 Family history of malignant neoplasm of digestive organs; Z80.1 Family history of malignant neoplasm of trachea, bronchus and lung; Z80.3 Family history of malignant neoplasm of breast; Z80.42 Family history of malignant neoplasm of prostate; Z80.8 Family history of malignant neoplasm of other organs or systems; Z81.8 Family history of other mental and behavioral disorders; Z82.0 Family history of epilepsy and other diseases of the nervous system; Z82.3 Family history of stroke; Z82.49 Family history of ischemic heart disease and other diseases of the circulatory system; Z82.5 Family history of asthma and other chronic lower respiratory diseases; Z82.62 Family history of osteoporosis; Z83.3 Family history of diabetes mellitus
CPT/HCPCS: 36415; 80048; 80053; 80307; 81001; 82270; 82306; 82607; 82962; 83036; 83735; 84443; 85025; 85048; 86735; 87040; 87045; 87086; 87426; 87427; 87493; 94640; 99291; G0378; J1450; J1815; J2405; J3490

== ENCOUNTER 2024-10-24 06:20 | Emergency (ER) | payer OTHER, MEDICAID ==
[~2024-10-24] VITALS: Ht 175.3 cm; Wt 86.4 kg
[~2024-10-24 06:20] MED LIST changes: -ALBUAER3 IN; +ATOR-507 PO; +BACL20TA PO; -BISA10EN RE; +BUTA-280 OR; +CEPH500C PO; -DIPH50TA9 PO; +EMPA1TAB PO; +FENO160T PO; +FLUP5TAB14 PO; -GAB400C PO; +LEV75T PO; -LEVO500I7 PO; -LIS5T PO; +MELO15TA29 PO; +METO-281 PO; +MIRT1TAB38 PO; +NIFE1TAB30 PO; +OLAN1TAB PO; +OLAN20TA PO; -ONDA-101 SL; +OXCA600T3 PO; +PANT40TA2 PO; -SIMV10TA20 PO; +SODI1ENE4 PR; +SUMA50TA16 PO; -TRAM100C PO; -TRAZ-228 PO; +VENL150C3 PO
--- NOTE | 2024-10-24 06:44 | ED.PDOC ---
Psychiatric HPI Comments 39 year old male presents to the ED with chief complaint of SI and N/V. Patient reports that he has been hearing auditory hallucinations telling him to commit suicide and to roll himself into oncoming traffic. Patient relays that he has also been experiencing nausea and vomiting for the past 3 days. Patient denies any HI, visual hallucinations, diarrhea, abdominal pain, hematemesis, or fever. Time Seen by MD: 06:41 Primary Care Provider: UNKNOWN Reviewed Notes: Nurses Notes, Medications, Allergies Information Source: Patient Mode of Arrival: Wheelchair Severity: Able to Care for Self, Able to Control Self Severity of Pain: None Severity of Mental Status: Moderate Severity of Symptoms: Moderate Timing: Hours Duration: Since onset Prehospital treatment: None Presents with: Suicidal Ideation Circumstance: None Current substance abuse: None Stressors: None History of: Depression, Anxiety, Schizophrenia Associated signs and symptoms: Hallucinations Past Medical History PAST MEDICAL HISTORY: Anxiety, Asthma, Depression, GERD, High Lipids, Schizophrenia, Thyroid Surgical History: Hernia Repair Family History Family History: No family hx of DM, No family hx of HTN Social History Smoker: Non-Smoker Alcohol: Denies ETOH Use Drugs: Denies Drug Use Lives In: Home Constitutional: denies: chills, diaphoresis, fatigue, fever, malaise, sweats, weakness, others EENTM: denies: blurred vision, double vision, ear bleeding, ear discharge, ear drainage, ear pain, ear ringing, eye pain, eye redness, hearing loss, mouth pain, mouth swelling, nasal discharge, nose bleeding, nose congestion, nose pain, photophobia, tearing, throat pain, throat swelling, voice changes, others Respiratory: denies: cough, hemoptysis, orthopnea, SOB at rest, shortness of breath, SOB with excertion, stridor, wheezing, others Cardiovascular: denies: chest pain, dizzy spells, diaphoresis, Dyspnea on exertion, edema, irregular heart beat, left arm pain, lightheadedness, palpitations, PND, syncope, others Gastrointestinal: reports: nausea, vomiting; denies: abdomen distended, abdominal pain, blood streaked bowels, constipated, diarrhea, dysphagia, difficulty swallowing, hematemesis, melena, poor appetite, poor fluid intake, rectal bleeding, rectal pain, others Genitourinary: denies: burning, dysuria, flank pain, frequency, hematuria, incontinence, penile discharge, penile sore, pain, testicle pain, testicle swelling, urgency, others Neurological: denies: dizziness, fainting, headache, left sided numbness, left sided weakness, numbness, paresthesia, pre-existing deficit, right sided numbness, right sided weakness, seizure, speech problems, tingling, tremors, weakness, others Musculoskeletal: denies: back pain, gout, joint pain, joint swelling, muscle pain, muscle stiffness, neck pain, others Integumetry: denies: bruises, change in color, change in hair/nails, dryness, laceration, lesions, lumps, rash, wounds, others Allergic/Immunocompromised: denies: Difficulty Healing, Frequent Infections, Hives, Itching, others Hematologic/Lymphatic: denies: anemia, blood clots, easy bleeding, easy bruising, swollen glands, others Endocrine: denies: excessive hunger, excessive sweating, excessive thirst, excessive urination, flushing, intolerance to cold, intolerance to heat, u nexplained weight gain, unexplained weight loss, others Psychiatric: reports: suicidal, others (Auditory hallucinations); denies: anxiety, bipolar disorder, depression, hopeless, panic disorder, schizophrenia, sleepless All Other Systems: Reviewed and Negative Physical Exam General Appearance: No Apparent Distress, Normal, Other (withdrawn) HEENT: Normal ENT Inspection, Pharynx Normal, TMs Normal Neck: Full Range of Motion, Non-Tender, Normal, Normal Inspection Respiratory: Chest Non-Tender, Lungs Clear, No Accessory Muscle Use, No Respiratory Distress, Normal Breath Sounds Cardiovascular: No Edema, No JVD, No Murmur, No Gallop, Normal Peripheral Pulses, Regular Rate/Rhythm Breast Exam: Deferred Gastrointestinal: No Organomegaly, Non Tender, No Pulsatile Mass, Normal Bowel Sounds, Soft Genitalia: Deferred Pelvic: Deferred Rectal: Deferred Extremities: No calf tenderness, Normal capillary refill, Normal inspection, Normal range of motion, Non-tender, No pedal edema, Other (Wheelchair bound) Musculoskeletal : Apperance: Normal 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 Was a procedure done?: No Psych Differential Dx Psych. Differential Dx: Depression, Suicidal X-Ray, Labs, Meds, VS Vital Signs Date Time Temp Pulse Resp B/P (MAP) Pulse Ox O2 Delivery O2 Flow Rate FiO2 10/25/24 06:00 88 23 119/77 (91) 96 10/25/24 00:30 87 22 123/70 (87) 95 10/24/24 20:08 89 30 96 Room Air* 0 21 10/24/24 20:08 98.0 89 30 112/60 (77) 96 98.0 10/24/24 08:38 98.7 68 17 120/82 (95) 97 98.7 10/24/24 08:33 68 17 97 Room Air* 0 21 10/24/24 06:50 98.0 79 16 137/79 (98) 99 98.0 10/24/24 06:30 97.9 70 16 149/89 (109) 98 97.9 Lab Test 10/24/24 17:30 10/24/24 06:39 Range/Units Urine Color Light-yellow Yellow Urine Clarity Clear Clear Urine pH 7.0 5.0-9.0 Urine Specific [place] 1.015 1.001-1.035 Urine Protein Negative Negative Urine Ketones Negative Negative Urine Blood Negative Negative /uL Urine Nitrite Negative Negative Urine Bilirubin Negative Negative Urine Urobilinogen Normal Negative mg/dL Urine Leukocyte Esterase Negative Negative /uL Urine RBC 3 0 - 3 /hpf Urine Microscopic WBC < 1 0-3 /HPF Urine Squamous Epithelial Cells None seen <5 /hpf Urine Bacteria None seen None Seen /hpf Urine Glucose Normal Normal mg/dL Urine Opiates Screen Neg NEGATIVE Urine Fentanyl Screen Neg NEGATIVE Urine Barbiturates Screen Neg NEGATIVE Urine Phencyclidine Screen Neg NEGATIVE Urine Amphetamines Screen Neg NEGATIVE Urine Benzodiazepines Screen Neg NEGATIVE Urine Cocaine Screen Neg NEGATIVE Urine Cannabinoids Screen Neg NEGATIVE White Blood Count 14.5 H 4.4-10.8 10^3/uL Red Blood Count 5.21 4.5-5.90 10^6/uL Hemoglobin 15.4 13.5-17.5 g/dL Hematocrit 44.5 41.0-53.0 % Mean Corpuscular Volume 85.4 80.0-100.0 fL Mean Corpuscular Hemoglobin 29.5 28.0-32.0 pg Mean Corpuscular Hemoglobin Concent 34.5 32.0-36.0 g/dL Red Cell Distribution Width 15.3 H 11.8-14.3 % Platelet Count 262 140-450 10^3/uL Mean Platelet Volume 7.3 6.9-10.8 fL Neutrophils (%) (Auto) 88.0 H 37.0-80.0 % Lymphocytes (%) (Auto) 5.4 L 10.0-50.0 % Monocytes (%) (Auto) 5.7 0.0-12.0 % Eosinophils (%) (Auto) 0.5 0.0-7.0 % Basophils (%) (Auto) 0.4 0.0-2.0 % Neutrophils # (Auto) 12.7 H 1.6-8.6 10 ^3/uL Lymphocytes # (Auto) 0.8 0.4-5.4 10 ^3/uL Monocytes # (Auto) 0.8 0-1.3 10 ^3/uL Eosinophils # (Auto) 0.1 0-0.8 10 ^3/uL Basophils # (Auto) 0.1 0-0.2 10 ^3/uL Nucleated Red Blood Cells 0.0 % Sodium Level 139 136-145 mmol/L Potassium Level 4.3 3.5-5.1 mmol/L Chloride Level 102 98-107 mmol/L Carbon Dioxide Level 28 20-31 mmol/L Anion Gap 9 5-15 Blood Urea Nitrogen 13 9-23 mg/dL Creatinine 1.07 0.700-1.30 mg/dL Glomerular Filtration Rate Calc 90 >90 mL/min BUN/Creatinine Ratio 12.1 10.0-20.0 Serum Glucose 121 H 74-106 mg/dL Calcium Level 10.6 H 8.7-10.4 mg/dL Salicylates Level < 3.0 -30 mg/dL Acetaminophen Level 2.0 L 10.0-20.0 UG/ML Plasma/Serum Blood Alcohol < 3.0 <10 mg/dL Current Medications Medications (Trade) Dose Ordered Sig/Demian Route Start Time Stop Time Status Last Admin Enteral Nutritional Formula (Ensure High Protein) 240 ml TIDWM PO 10/24/24 10:00 10/24/24 19:30 Olanzapine (ZyPREXA Tablet) 10 mg ONCE ONCE PO 10/24/24 13:45 10/24/24 13:46 DC 10/24/24 14:02 Haloperidol (Haldol Tablet) 10 mg ONCE ONCE PO 10/24/24 13:45 10/24/24 13:46 DC 10/24/24 14:02 Oxycodone/ Acetaminophen (Percocet 5/ 325MG Tablet) 1 tab ONCE ONCE PO 10/24/24 15:15 10/24/24 15:16 DC 10/24/24 15:39 Oxycodone/ Acetaminophen (Percocet 5/ 325MG Tablet) 1 tab ONCE ONCE PO 10/24/24 23:30 10/24/24 23:31 DC 10/24/24 23:54 Hydroxyzine Pamoate (Vistaril Oral) 50 mg ONCE ONCE PO 10/24/24 23:30 10/24/24 23:31 DC 10/25/24 01:40 Haloperidol (Haldol Tablet) 10 mg ONCE ONCE PO 10/25/24 01:15 10/25/24 01:16 DC 10/25/24 01:40 Zolpidem Tartrate (Ambien) 10 mg ONCE ONCE PO 10/25/24 01:45 10/25/24 01:46 DC 10/25/24 02:04 Time of 1ST Reevaluation: 07:41 Reevaluation 1ST: Unchanged Patient Education/Counseling: Diagnosis, Treatment Family Education/Counseling: No Family Present Additional Information The following tests were ordered, and results were reviewed by me: CBC, BMP, ETOH, UDS, UA, Salicylate Additional Information was gathered from interviewing the following independent historians: None I reviewed and agreed with the following test results read by other providers: None I discussed treatment and results with medical personnel and: patient Comprehensive systems review obtained and negative except for what is stated in the HPI. Departure 1 Departure Time of Disposition: 07:37 (Patient is medically cleared by Psychiatry. We will discharge patient home with outpatient follow up) Impression: Primary Impression: Depression Qualified Codes: F32.A - Depression, unspecified Disposition: HOME / SELF CARE / HOMELESS Condition: Stable Additional Instructions: It is important to take your regular medications follow up with the regular doctors. Discharged With: Self Critical Care Note Critical Care Time?: No Stability Stability form required: No Heart Score Heart Score: Heart Score Response (Comments) Value History N/A 0 EKG N/A 0 Age N/A 0 Risk Factors N/A 0 Troponin N/A 0 Total 0 I personally scribed for JAIRON KRAUSE MD ([email or web address]) on 10/24/24 at 06:44. E lectronically submitted by Ming Juarez ([email or web address]). JAIRON KRAUSE MD October 24, 2024 06:44
[2024-10-24] MEDS: ONDANSETRON ODT 4 MG TAB PO ONE (06:51)
[2024-10-24 07:01] LABS: Basophils # (auto) 0.1 10 ^3/uL (0-0.2); Basophils % (auto) 0.4 % (0.0-2.0); Eosinophils # (auto) 0.1 10 ^3/uL (0-0.8); Eosinophils % (auto) 0.5 % (0.0-7.0); Hematocrit 44.5 % (41.0-53.0); Hemoglobin 15.4 g/dL (13.5-17.5); Lymphocytes # (auto) 0.8 10 ^3/uL (0.4-5.4); Lymphocytes % (auto) 5.4 % (10.0-50.0); Mean Corpuscular Hemoglobin 29.5 pg (28.0-32.0); Mean Corpuscular Hgb Conc. 34.5 g/dL (32.0-36.0); Mean Corpuscular Volume 85.4 fL (80.0-100.0); Monocytes # (auto) 0.8 10 ^3/uL (0-1.3); Monocytes % (auto) 5.7 % (0.0-12.0); Neutrophils # (auto) 12.7 10 ^3/uL (1.6-8.6); Platelet Count (auto) 262 10^3/uL (140-450); Red Blood Cells 5.21 10^6/uL (4.5-5.90); Red Cell Distribution Width 15.3 % (11.8-14.3); White Blood Cell 14.5 10^3/uL (4.4-10.8)
[2024-10-24 07:06] LABS: Chloride 102 mmol/L (98-107); Potassium 4.3 mmol/L (3.5-5.1); Sodium 139 mmol/L (136-145)
[2024-10-24 07:07] LABS: Anion Gap 9 (5-15); Carbon Dioxide 28 mmol/L (20-31)
[2024-10-24 07:13] LABS: BUN/Creatinine Ratio 12.1 (10.0-20.0); Blood Urea Nitrogen 13 mg/dL (9-23)
[2024-10-24 07:22] LABS: Salicylate < 3.0 mg/dL (-30)
[2024-10-24 07:30] LABS: Blood Alcohol < 3.0 mg/dL (<10); Calcium 10.6 mg/dL (8.7-10.4); Glucose 121 mg/dL (74-106)
[2024-10-24 08:33] VITALS: PULSE 68; RESP 17; O2SAT 97
[2024-10-24] MEDS: Ensure HIGH Protein Chocolate 8oz Bottle PO SCH (10:28)
[2024-10-24] MEDS: HALOPERIDOL 5 MG TAB PO ONE (14:02)
[2024-10-24] MEDS: OLANZapine 5 MG TAB PO ONE (14:02)
[2024-10-24] MEDS: OXYCODONE W/ ACETAMINOPHEN 5/325MG TABLET PO ONE ×2 (15:39→23:54)
[2024-10-24 17:46] LABS: Urine Bacteria None Seen /hpf (None Seen)
[2024-10-24 18:00] LABS: Urine Blood Negative /uL (Negative); Urine Clarity Clear (Clear); Urine Color Light-Yellow (Yellow); Urine Protein, UAD Negative (Negative); Urine Specific Gravity 1.015 (1.001-1.035); Urine Squamous Epithelial Cell None Seen /hpf (<5); Urine Urobilinogen Normal (Negative); Urine WBC < 1 /HPF (0-3)
[2024-10-24 18:32] LABS: Opiate Scree,Urine Neg (NEGATIVE); Phencyclidine Screen, Urine Neg (NEGATIVE)
[2024-10-24 18:33] LABS: Amphetamine Screen, Urine Neg (NEGATIVE); Barbiturate Scree,Urine Neg (NEGATIVE); Benzodiazephine Screen, Urine Neg (NEGATIVE); Cannabinoid Screen, Urine Neg (NEGATIVE); Cocaine Screen, Urine Neg (NEGATIVE)
[2024-10-24 20:08] VITALS: PULSE 89; RESP 30; TEMP 98; O2SAT 96
[2024-10-24] MEDS: HALOPERIDOL 1 MG TAB PO ONE (23:30)
[2024-10-25] MEDS: HALOPERIDOL 5 MG TAB PO ONE (01:40)
[2024-10-25] MEDS: hydrOXYzine 25 MG TAB or CAP PO ONE (01:40)
--- NOTE | 2024-10-25 01:56 | DVHINCON2 ---
Date of Service if different f: October 25, 2024 Time of Service: 01:02 Consult Consult Note PSYCHIATRY ED NEW CONSULT HPI: 39 yo M pt with PPH of schizophrenia presents to ED for safety, psychiatric stabilization, and possible med initiation/optimization in setting of AH, insomnia and passive SI. Psychiatry consulted for safety evaluation and recommendations in context of current presentation. Of note, pt Non-verbal, communicates through use of cellphone. Per pt, reports over past several days worsening n/v hence has been possibly noncompliant or throwing up his rx'd psychiatric meds resulting in some CAH to hurt self (although has chronic AH), insomnia and passive SI with no plan/i ntent. Reports primary stress as recent GI distress, ongoing COVID symptoms from last year, insomnia, and not being able to hold down psychotropic meds due to nausea Currently denies depressed mood, hopelessness, helplessness, isolation, negative thoughts, or anhedonia. Denies anxiety/panic/OCD/PTSD symptoms. Also denies VH/paranoia/catatonic/perceptual disturbances/personality changes. No overt manic, psychotic, MDD, cognitive, dissociative, panic, OCD, PTSD, or somatic symptoms noted. Overall appears future oriented/goal directed Pt currently does have active outpt MH services established at this time (psychiatrist only) with upcoming appt later this month. 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 Denies FH of psych hospitalizations, suicide attempts, or completed suicides No acute medical/chronic pain issues, hx of seizures/TBI, or recent head injuries Some hx of SI but no actual SIB/SA/PSG. hx of several prior psych hospitalizations for SI including prior DTS holds, last admission several months ago. Denies history of violence, unprovoked aggression, or assaultive behaviors. Denies recent hx of impulsivity, attention seeking behaviors, anger outbursts, emotional dysregulation, mood reactivity, or engaging in risky behaviors Currently denies SI/HI/AVH. Does not have access to firearms. Identifies self/ as PPF. No acute safety concerns noted during encounter MSE: General Appearance/Behavior: Alert and awake; appears bit older than stated age, mmarginal/fair grooming and hygiene; calm and cooperative, some eye contact, no PMA/PMR Speech: non-verbal Thought Process: linear, logical, concrete Thought Content: Abnormal Thoughts and Perceptions: denies dissociative symptoms Homicidality / Violent Thoughts: adamantly denies HI Suicidality: adamantly denies SI Hallucinations: +AH (chronic) Delusions: denies paranoia, persecutory, or grandiose delusions Obsessions /compulsions: None Judgment and Insight: fair/fair/marginal Mood & Affect: "tired" with mood-congruent, mildly restricted but appropriate Orientation: oriented to person, place, time Attention/Concentration: appears intact Cognition: grossly intact Assessment: 39 yo M pt with PPH of schizophrenia presents to ED for safety, psychiatric stabilization, and possible med initiation/optimization in setting of AH, insomnia and passive SI. Of note, pt Non-verbal, communicates through use of cellphone Currently denies SI/HI/AVH. Linear and appears future oriented/goal directed in thought. Pt medically cleared Pt�s presenting MH symptoms appear more secondary to difficulty controlling emotions and possible subtherapeutic levels of psychotropics due to recent n/v resulting in some medication non-adherence Presently, pt does not show any signs of immediate danger to self/others or GD that would necessitate 5150 or involuntary inpatient psych admission. However offered voluntary inpt psychiatric hospitalization but pt declined. Also declined further ED observation/reevaluation. No acute safety concerns noted. Acute suicide risk appears nonexistent to relatively low Pt currently does have psychiatrist out in community and remains future oriented to follow up over next several weeks for ongoing med management/psychotx Currently Effexor 150 mg qd, Trazodone 100 mg qhs, Hydroxyzine 50 mg prn, trileptal 300 mg bid, doxepin 10 mg qhs, haldol 10 mg qd. No indication to change current med regimen at this time although recommend adding Ambien 10 mg po x 14 days to current regimen as he c/o insomnia as primary symptom that's causing him emotional distress Primary Diagnosis: Schizophrenia unspecified Plan: Does not warrant involuntary inpatient psychiatric hospitalization or 5150 hold at this time No acute safety concerns Pt can be safely discharged back to current residence Resume current outpatient psychotropics One time dose of ambien 10 mg po now D/c pt on 14 day rx of Ambien 10 mg po qhs prn insomnia Risks/benefits/alternative treatments discussed, informed consent provided by pt Supportive tx provided, discussed safety plan with pt Emphasized sleep hygiene Encouraged mindfulness techniques (reading, walking, meditation, journaling, exercise, deep breathing) during times of stress Pt planning on pursuing ongoing therapy/med management with outpatient MH providers over next several weeks Encouraged f/u with PCP for routine medical/preventive care Instructed pt to call/text [phone] or return to ED if MH symptoms worsen or new onset SI/HI upon discharge Pt verbalized understanding and is receptive to above tx plan This case was discussed with ED nurse/provider and all parties in agreement with above tx plan Magdaleno Hui MD Plan discussed with: Patient MAGDALENO HUI MD October 25, 2024 01:55
[2024-10-25] MEDS: ZOLPIDEM TARTRATE 5 MG TAB PO ONE (02:04)
[2024-10-25 06:00] VITALS: BP 119/77; PULSE 88; RESP 23; O2SAT 96
[2024-10-25] MEDS ORDERED: ZOLP10TA PO (07:54)
== END 2024-10-25 07:48 | disposition home or self-care (01) ==
LOC: ER 06:20
DX: F32.A Depression, unspecified (principal); F41.9 Anxiety disorder, unspecified; F20.9 Schizophrenia, unspecified; J45.909 Unspecified asthma, uncomplicated; K21.9 Gastro-esophageal reflux disease without esophagitis; Z98.890 Other specified postprocedural states; Z79.899 Other long term (current) drug therapy
CPT/HCPCS: 36415; 80048; 80307; 80320; 80329; 81001; 85025; 99285; Q0162

== ENCOUNTER 2024-12-17 22:35 | Emergency (ER) | payer OTHER, MEDICAID ==
[~2024-12-17] VITALS: Ht 167.6 cm; Wt 77.3 kg
[~2024-12-17 22:35] MED LIST changes: +ZOLP10TA PO
--- NOTE | 2024-12-17 23:00 | ED.PDOC ---
History of Present Illness HPI Comments 39 y/o nonverbal M is BIBA from his local crisis center for suicidal ideations and self harm behavior. Per EMS report, staff at aforementioned facility called after patient began endorsing on wanting to end his life and attempting to rip his hair out. No homicidal ideations, auditory or visual hallucinations, or further associated symptoms. 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 Time Seen by MD: 22:40 Primary Care Provider: UNKNOWN Reviewed Notes: Nurses Notes, Medications, Allergies Allergies: Coded Allergies: Penicillins (Verified Allergy, Unknown, 04/09/14) Home Meds Active Scripts Zolpidem Tartrate (Ambien) 10 Mg Tab, 1 TAB PO QPM PRN for 14 Days, #14 TAB 5 Refills Prov:JAIRON KRAUSE MD 10/25/24 Reported Medications Qhfoqumzii-Gqdsqeffcnwyo-Zckxg (FIORICET) Cap, 1 OR, CAP 04/14/24 Sumatriptan Succinate (Sumatriptan Succinate) 50 Mg Tab, 50 MG PO, MG 04/14/24 Sodium Phosphates (Enema) 1 Ronna Ronna, 1 RONNA CA, EA 04/14/24 Baclofen (Baclofen) 20 Mg Tab, 1 TAB PO TID, #90 TAB 2 Refills 04/14/24 Metoclopramide Hcl (Reglan) 10 Mg Tab, 10 MG PO, TAB 04/14/24 Meloxicam (Meloxicam) 15 Mg Tab, 1 TAB PO DAILY, #30 TAB 2 Refills 04/14/24 Fluphenazine Hcl (Fluphenazine Hcl) 5 Mg Tab, 1 TAB PO QPM, #30 TAB 1 Refill 04/14/24 Oxcarbazepine (Trileptal) 600 Mg Tab, 1 TAB PO BID, #60 TAB 1 Refill 04/14/24 Empagliflozin (Jardiance) 10 Mg Tab, 10 MG PO, TAB 04/14/24 Mirtazapine (Mirtazapine Oral Disintegrating Tablet) 15 Mg Tab, 1 TAB PO QPM, #30 TAB 3 Refills 04/14/24 Venlafaxine Hydrochloride (Effexor Xr) 150 Mg Cap, 1 CAP PO DAILY, #30 CAP 1 Refill 04/14/24 Atorvastatin Calcium (Lipitor) 40 Mg Tab, 1 TAB PO QPM, #90 TAB 1 Refill 04/14/24 Olanzapine-Samidorphan l-Malat (Lybalvi 15-10 mg) 1 Tab Tab, 1 TAB PO, TAB 04/14/24 Olanzapine (Zyprexa) 20 Mg Tab, 1 TAB PO QPM, #30 TAB 04/14/24 Fenofibrate (Fenofibrate) 160 Mg Tab, 1 TAB PO DAILY, #30 TAB 5 Refills 04/14/24 Levothyroxine Sodium (Synthroid) 75 Mcg Tab, 1 TAB PO DAILY, #30 TAB 5 Refills 04/14/24 Nifedipine (Nifedipine Er) 60 Mg Tab, 1 TAB PO DAILY, #30 TAB 5 Refills 04/14/24 Pantoprazole Sodium Sesquihydr (Protonix) 40 Mg Tab, 40 MG PO DAILY, #30 TAB 04/14/24 Cephalexin Monohydrate (Cephalexin) 500 Mg Cap, 1 CAP PO QID, #40 CAP 04/14/24 Information Source: Patient, Emergency Med Personnel Mode of Arrival: EMS Severity: Moderate Timing: Hours Duration: Since onset Prehospital treatment: 12 Lead EKG, Tile Grader Past Medical History PAST MEDICAL HISTORY: Anxiety, Asthma, Depression, DM (type II ), GERD, High Lipids (mixed ), Schizophrenia, Seizures, Thyroid (hypothyroidism) Past Medical History (Other): Cerebral palsy 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 and congenital nystagmus idiopathyic scoliosis carpal tunnel vertigo urinary and bowel incontinence (diapers used) migraines BiPAP user Surgical History: Hernia Repair Family History Family History: No family hx of DM, No family hx of HTN Social History Smoker: Non-Smoker Alcohol: Denies ETOH Use Drugs: Denies Drug Use Lives In: Home All Other Systems: Reviewed and Negative (Comprehensive systems review obtained and negative except for what is stated in the HPI.) Physical Exam General Appearance: No Apparent Distress, Obese HEENT: Pharynx Normal, TMs Normal, Other (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 and congenital nystagmus) Neck: Full Range of Motion, Non-Tender, Normal, Normal Inspection Respiratory: Chest Non-Tender, Lungs Clear, No Accessory Muscle Use, No Respi ratory Distress, Normal Breath Sounds Cardiovascular: No Edema, No JVD, No Murmur, No Gallop, Normal Peripheral Pulses, Regular Rate/Rhythm Breast Exam: Deferred Gastrointestinal: No Organomegaly, Non Tender, No Pulsatile Mass, Normal Bowel Sounds, Soft Genitalia: Deferred Pelvic: Deferred Rectal: Deferred Extremities: No calf tenderness, Normal capillary refill, Normal inspection, Normal range of motion, Non-tender, No pedal edema Musculoskeletal : Apperance: Normal Neurologic: Alert, user experience lead II-XII nml as Tested, No Motor Deficits, Normal Affect, Normal Mood, No Sensory Deficits, Speech Problem (nonverbal at baseline ) Cerebellar Function: Normal Reflexes: Normal Skin: Dry, Normal Color, Warm Lymphatic: No Adenopathy Was a procedure done? Was a procedure done?: No Differential Dx Considerations may include: suicidal ideation, depression, hopelessness, schizoaffective disorder, among others X-Ray, Labs, Meds, VS Vital Signs Date Time Temp Pulse Resp B/P (MAP) Pulse Ox O2 Delivery O2 Flow Rate FiO2 12/18/24 19:30 85 16 95 Room Air* 0 21 12/18/24 19:27 97.5 85 16 149/46 (80) 95 97.5 12/18/24 08:00 98.6 76 16 167/68 (101) 99 98.6 12/18/24 07:56 Room Air* 0 21 12/18/24 06:00 14 141/75 (97) 98 12/18/24 05:00 85 13 147/80 (102) 98 12/18/24 04:00 68 15 118/73 (88) 100 12/18/24 03:00 66 14 135/83 (100) 99 12/18/24 02:00 76 15 116/85 (95) 12/18/24 01:00 83 14 131/81 (98) 12/18/24 00:10 90 19 95 Room Air* 0 21 12/18/24 00:00 87 18 141/83 (102) 12/17/24 23:25 97.9 90 19 152/91 (111) 95 97.9 12/17/24 22:50 98.7 97 20 153/95 (114) 95 98.7 Lab Test 12/18/24 14:10 12/17/24 22:52 Range/Units Urine Color Light-yellow Yellow Urine Clarity Clear Clear Urine pH 7.0 5.0-9.0 Urine Specific [place] 1.020 1.001-1.035 Urine Protein Negative Negative Urine Ketones Negative Negative Urine Blood Negative Negative /uL Urine Nitrite Negative Negative Urine Bilirubin Negative Negative Urine Urobilinogen Normal Negative mg/dL Urine Leukocyte Esterase Negative Negative /uL Urine RBC 1 0 - 3 /hpf Urine Microscopic WBC 1 0-3 /HPF Urine Squamous Epithelial Cells Few <5 /hpf Urine Bacteria None seen None Seen /hpf Urine Glucose Normal Normal mg/dL Urine Opiates Screen Neg NEGATIVE Urine Fentanyl Screen Neg NEGATIVE Urine Barbiturates Screen Neg NEGATIVE Urine Phencyclidine Screen Neg NEGATIVE Urine Amphetamines Screen Neg NEGATIVE Urine Benzodiazepines Screen Neg NEGATIVE Urine Cocaine Screen Neg NEGATIVE Urine Cannabinoids Screen Neg NEGATIVE White Blood Count 12.8 H 4.4-10.8 10^3/uL Red Blood Count 5.04 4.5-5.90 10^6/uL Hemoglobin 14.8 13.5-17.5 g/dL Hematocrit 43.4 41.0-53.0 % Mean Corpuscular Volume 86.1 80.0-100.0 fL Mean Corpuscular Hemoglobin 29.3 28.0-32.0 pg Mean Corpuscular Hemoglobin Concent 34.1 32.0-36.0 g/dL Red Cell Distribution Width 15.5 H 11.8-14.3 % Platelet Count 319 140-450 10^3/uL Mean Platelet Volume 7.5 6.9-10.8 fL Neutrophils (%) (Auto) 73.2 37.0-80.0 % Lymphocytes (%) (Auto) 18.3 10.0-50.0 % Monocytes (%) (Auto) 7.1 0.0-12.0 % Eosinophils (%) (Auto) 0.7 0.0-7.0 % Basophils (%) (Auto) 0.7 0.0-2.0 % Neutrophils # (Auto) 9.3 H 1.6-8.6 10 ^3/uL Lymphocytes # (Auto) 2.3 0.4-5.4 10 ^3/uL Monocytes # (Auto) 0.9 0-1.3 10 ^3/uL Eosinophils # (Auto) 0.1 0-0.8 10 ^3/uL Basophils # (Auto) 0.1 0-0.2 10 ^3/uL Nucleated Red Blood Cells 0.0 % Sodium Level 141 136-145 mmol/L Potassium Level 4.0 3.5-5.1 mmol/L Chloride Level 105 98-107 mmol/L Carbon Dioxide Level 26 20-31 mmol/L Anion Gap 10 5-15 Blood Urea Nitrogen 19 9-23 mg/dL Creatinine 1.12 0.700-1.30 mg/dL Glomerular Filtration Rate Calc 85 >90 mL/min BUN/Creatinine Ratio 17.0 10.0-20.0 Serum Glucose 101 74-106 mg/dL Calcium Level 10.4 8.7-10.4 mg/dL Salicylates Level < 3.0 -30 mg/dL Acetaminophen Level < 2.0 L 10.0-20.0 UG/ML Plasma/Serum Blood Alcohol < 3.0 <10 mg/dL Current Medications Medications (Trade) Dose Ordered Sig/Demian Route Start Time Stop Time Status Last Admin Haloperidol Lactate (Haldol) 10 mg ONCE ONCE IM 12/18/24 05:45 12/18/24 05:46 DC 12/18/24 05:44 Haloperidol Lactate (Haldol) 10 mg ONCE ONCE IM 12/18/24 21:15 12/18/24 21:16 DC 12/18/24 21:43 Time of 1ST Reevaluation: 23:10 Reevaluation 1ST: Unchanged Patient Education/Counseling: Other (ED observation ) Family Education/Counseling: No Family Present Additional Information Previous visits reviewed: October 24, 2024 encounter for depression The following tests were ordered, and results were reviewed by me: UA, CBC, BMP, blood alcohol, drug screen, salicylate, acetaminophen Additional Information was gathered from interviewing the following independent historians: EMS I reviewed and agreed with the following test results read by other providers: N/A I discussed treatment and results with medical personnel and: patient SEPSIS Sepsis Screen Physician Orders Soc Telemed Psych Consult (12/17/24 22:40) Behavioral Restraints (12/18/24 04:20) Regular Diet (12/18/24 Breakfast) Vital Signs Date Time Temp Pulse Resp B/P (MAP) Pulse Ox O2 Delivery O2 Flow Rate FiO2 12/18/24 19:30 85 16 95 Room Air* 0 21 12/18/24 19:27 97.5 85 16 149/46 (80) 95 97.5 12/18/24 08:00 98.6 76 16 167/68 (101) 99 98.6 7/1/25 07:56 Room Air* 0 21 12/18/24 06:00 14 141/75 (97) 98 12/18/24 05:00 85 13 147/80 (102) 98 12/18/24 04:00 68 15 118/73 (88) 100 12/18/24 03:00 66 14 135/83 (100) 99 12/18/24 02:00 76 15 116/85 (95) 12/18/24 01:00 83 14 131/81 (98) 12/18/24 00:10 90 19 95 Room Air* 0 21 12/18/24 00:00 87 18 141/83 (102) 12/17/24 23:25 97.9 90 19 152/91 (111) 95 97.9 12/17/24 22:50 98.7 97 20 153/95 (114) 95 98.7 Laboratory Tests Test 12/17/24 22:52 White Blood Count 12.8 10^3/uL (4.4-10.8) H Medications Medications Dose Ordered Sig/Demian Route Start Time Stop Time Status Last Admin Dose Admin Haloperidol Lactate 10 mg ONCE ONCE IM 12/18/24 21:15 12/18/24 21:16 DC 12/18/24 21:43 Departure 1 Departure Time of Disposition: 00:56 (Patient was medically cleared and then cleared for discharge by psychiatry.) Impression: Primary Impression: Anxiety disorder Qualified Codes: F41.1 - Generalized anxiety disorder Disposition: 01 HOME / SELF CARE / HOMELESS Condition: Stable Additional Instructions: It is important to follow up with the regular doctors and continue to take your regular medications. Discharged With: Self Critical Care Note Critical Care Time?: No Stability Stability form required: No Heart Score Heart Score: Heart Score Response (Comments) Value History N/A 0 EKG N/A 0 Age N/A 0 Risk Factors N/A 0 Troponin N/A 0 Total 0 I personally scribed for JAIRON KRAUSE MD ([email or web address]) on 12/17/24 at 23:00. Electronically submitted by Ant Luis ([email or web address]). I personally scribed for JAIRON KRAUSE MD ([email or web address]) on 12/17/24 at 23:17. Electronically submitted by Ant Luis ([email or web address]). I personally scribed for JAIRON KRAUSE MD ([email or web address]) on 12/17/24 at 23:22. Electronically submitted by Ant Luis ([email or web address]). JAIRON KRAUSE MD Dec 17, 2024 23:00
[2024-12-17 23:03] LABS: Hematocrit 43.4 % (41.0-53.0); Hemoglobin 14.8 g/dL (13.5-17.5); Mean Corpuscular Hemoglobin 29.3 pg (28.0-32.0); Mean Corpuscular Volume 86.1 fL (80.0-100.0); Nucleated Red Blood Cells % 0.0 %
[2024-12-17 23:11] LABS: Chloride 105 mmol/L (98-107); Potassium 4.0 mmol/L (3.5-5.1); Sodium 141 mmol/L (136-145)
[2024-12-17 23:12] LABS: Anion Gap 10 (5-15); Carbon Dioxide 26 mmol/L (20-31)
[2024-12-17 23:17] LABS: Glucose 101 mg/dL (74-106)
[2024-12-17 23:18] LABS: BUN/Creatinine Ratio 17.0 (10.0-20.0); Blood Urea Nitrogen 19 mg/dL (9-23); Calcium 10.4 mg/dL (8.7-10.4)
[2024-12-17 23:26] LABS: Salicylate < 3.0 mg/dL (-30)
[2024-12-17 23:27] LABS: Acetaminophen < 2.0 UG/ML (10.0-20.0)
[2024-12-17] MEDS: HALOPERIDOL LACTATE 5 MG/ML INJ VIAL IM ONE (23:39)
[2024-12-18 00:10] VITALS: PULSE 90; RESP 19; O2SAT 95
[2024-12-18] MEDS: HALOPERIDOL LACTATE 5 MG/ML INJ VIAL IM ONE ×2 (05:44→21:43)
[2024-12-18 14:57] LABS: Urine Protein, UAD Negative (Negative)
[2024-12-18 15:02] LABS: Amphetamine Screen, Urine Neg (NEGATIVE); Barbiturate Scree,Urine Neg (NEGATIVE); Benzodiazephine Screen, Urine Neg (NEGATIVE); Cocaine Screen, Urine Neg (NEGATIVE); Opiate Scree,Urine Neg (NEGATIVE); Phencyclidine Screen, Urine Neg (NEGATIVE)
[2024-12-18 15:03] LABS: Cannabinoid Screen, Urine Neg (NEGATIVE)
[2024-12-18 19:30] VITALS: PULSE 85; RESP 16; O2SAT 95
--- NOTE | 2024-12-19 00:03 | DVHINCON2 ---
Date of Service if different f: Dec 18, 2024 Time of Service: 23:59 Consult Consult Note PSYCHIATRY ED NEW CONSULT HPI: 39 yo M pt with PPH of schizophrenia and PMH of CP and legal blindness presents to ED BIBA for safety, psychiatric stabilization, and possible med initiation/optimization in setting of passive SI/SIB. Psychiatry consulted for safety evaluation and recommendations in context of current presentation. Of note, pt Non-verbal, communicates through use of cellphone/IPAD Per report, pt presented to local crisis center for SI and SIB via pulling his hair out and upon arrival to ED, pt was briefly restrained due to slapping self in face Per pt, reports "i never said i was suicidal, i was just mad at [facility] and I just wanted to talk to someone" Reports primary stress as current political affairs s urrounding [email or web address]'s budget cuts to medicare and potential impact it can have on pts healthcare Currently denies depressed mood, hopelessness, helplessness, isolation, negative thoughts, or anhedonia. Denies anxiety/panic/OCD/PTSD symptoms. Also denies AVH/ paranoia/catatonic/perceptual disturbances/personality changes. Adamantly denies SI/HI. No overt manic, psychotic, MDD, cognitive, dissociative, panic, OCD, PTSD, or somatic symptoms noted. Overall appears future oriented/goal directed Pt currently does have active outpt MH services established at this time (psychiatrist and therapist) with upcoming appt later this month. 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 Denies FH of psych hospitalizations, suicide attempts, or completed suicides No acute medical/chronic pain issues although CP, aphasic, and legal blindness and hx of seizures. Denies recent head injuries Some hx of SI but no actual SIB/SA/PSG. Hx of several prior psych hospitalizations for SI including prior DTS holds, last admission earlier this year. Denies history of violence, unprovoked aggression, or assaultive behaviors. Denies recent hx of impulsivity, attention seeking behaviors, anger outbursts, emotional dysregulation, mood reactivity, or engaging in risky behaviors Currently denies SI/HI/AVH. Does not have access to firearms. Identifies self/ as PPF. No acute safety concerns noted during encounter MSE: General Appearance/Behavior: Alert and awake; appears bit older than stated age, fair grooming and hygiene; calm and cooperative, no PMA/PMR Speech: non-verbal/aphasic Thought Process: linear, logical, concrete Thought Content: Abnormal Thoughts and Perceptions: denies dissociative symptoms Homicidality / Violent Thoughts: adamantly denies HI Suicidality: adamantly denies SI Hallucinations: +AH (chronic) Delusions: denies paranoia, persecutory, or grandiose delusions Obsessions /compulsions: None Judgment and Insight: fair/fair/marginal Mood & Affect: "tired" with mood-congruent, mildly restricted but appropriate Orientation: oriented to person, place, time Attention/Concentration: appears intact Cognition: grossly intact Assessment: 39 yo M pt with PPH of schizophrenia and PMH of CP and legal blindness presents to ED BIBA for safety, psychiatric stabilization, and possible med initiation/optimization in setting of passive SI/SIB. Psychiatry consulted for safety evaluation and recommendations in context of current presentation. Of note, pt Non-verbal, communicates through use of cellphone/IPAD Currently denies SI/HI/AVH. Linear and appears future oriented/goal directed in thought. Pt medically cleared Pts presenting MH symptoms appear more secondary to difficulty controlling emotions in context of stress of current political affairs Presently, pt does not show any signs of immediate danger to self/others or GD that would necessitate 5150 or involuntary inpatient psych admission. However offered voluntary inpt psychiatric hospitalization but pt declined. Also declined further ED observation/reevaluation. No acute safety concerns noted. Acute suicide risk appears nonexistent to relatively low Pt currently does have psychiatrist/therapist out in community and remains future oriented to follow up over next several weeks for ongoing med management/psychotx Currently Effexor 150 mg qd, Trazodone 100 mg qhs, Hydroxyzine 50 mg prn, trileptal 300 mg bid, doxepin 10 mg qhs, haldol 10 mg qd. Overall med compliant,. No indication to change current med regimen at this time Primary Diagnosis: Adjustment disorder with mixed emotions and doc. Schizophrenia, hx Plan: Does not warrant involuntary inpatient psychiatric hospitalization or 5150 hold at this time No acute safety concerns Pt can be safely discharged back to current residence Resume current outpatient psychotropics No med changes indicated at this time Risks/benefits/alternative treatments discussed, informed consent provided by pt Supportive tx provided, discussed safety plan with pt Emphasized sleep hygiene Encouraged mindfulness techniques (reading, walking, meditation, journaling, exercise, deep breathing) during times of stress Pt planning on pursuing ongoing therapy/med management with outpatient MH providers over next several weeks Encouraged f/u with PCP for routine medical/preventive care Instructed pt to call/text [phone] or return to ED if MH symptoms worsen or new onset SI/HI upon discharge Pt verbalized understanding and is receptive to above tx plan This case was discussed with ED nurse/provider and all parties in agreement with above tx plan Magdaleno Hui MD Plan discussed with: Patient MAGDALENO HUI MD Dec 19, 2024 00:03
[2024-12-19 01:19] VITALS: BP 138/66; PULSE 88; RESP 16; TEMP 97.8
== END 2024-12-19 01:21 | disposition home or self-care (01) ==
LOC: ER 22:35 → EDBD 22:35 → ER 12-19 01:21
DX: F41.9 Anxiety disorder, unspecified (principal); G80.9 Cerebral palsy, unspecified; E11.9 Type 2 diabetes mellitus without complications; J45.909 Unspecified asthma, uncomplicated; E03.9 Hypothyroidism, unspecified; Z79.899 Other long term (current) drug therapy; Z88.0 Allergy status to penicillin; Z98.890 Other specified postprocedural states
CPT/HCPCS: 36415; 80048; 80307; 80320; 80329; 81001; 85025; 96372; 99285; J1630